=== PATIENT | female | born 1995 | race Caucasian/White ===

== ENCOUNTER 2017-07-04 19:13 | Emergency (ER) | payer OTHER, SELFPAY ==
[2017-07-04 19:14] VITALS: BP 136/83; PULSE 82; RESP 16; TEMP 36.8; O2SAT 100; BMI 32.7
--- NOTE | 2017-07-04 21:51 | ED.DCSUM_ITS ---
- ER Visit Summary Date of Service: 07/04/17 Chief Complaint: I think I have a concussion History of Present Illness: The patient is a 21 F who was playing volleyball yesterday. She was struck by a ball that was spiked. She states she was dazed. There is no loss conscious. She presents today because of headache, photophobia, sonophobia, nausea and intermittently feel as if she is in a fog. She states she cannot read small words or look at them on her screen because her headache worsens and she becomes more nauseous. She did complain of neck pain at the time of the event. She denies any paresthesia, anesthesia or motor weakness. She denies trouble with balance or walking. She is on no anticoagulant. She has no stomach a past medical history. She is visiting from out of town. Physical Examination: Vital signs are remarkable for an elevated blood pressure 136/83. She is wearing sunglasses. Pupils equal round reactive paradoxic muscle intact. She does have mild photophobia. There is normal cup-to-disc ratio. No papilledema. TMs are normal. Nares patent with no septal deviation hematoma. Uvula midline. Trachea midline. No cervical spine tenderness to palpation. Full active range of motion. Heart is regular without murmur, gallop or rub. S1 and S2 are normal. Lungs are clear to auscultation with good movement of air bilaterally. Abdomen is soft nontender. GCS is 15. Patient is alert and oriented ?3. Motor is 5/5. Sensation is intact. DTRs are symmetric without clonus or Babinski. Cranial nerves II through XII are intact. Finger to nose to finger was performed adequately. Test Results: None were indicated Emergency Department Course and Treatment: Patient was informed she has a concussion. She was informed to avoid things that make her symptoms worse. Treatment Plan: Appropriate home-going instructions for concussion Disposition: Charge to home with family Impression: Concussion without loss of conscious initial encounter This note was generated with [employer] dictation software. It may contain incorrect words, spelling, and punctuation that were not noted in review of the chart prior to signing ED Disposition - Plan for ED Patient: Disposition: Home or Assisted Living Chief Complaint: Head Injury Instructions: ED Concussion Referrals: NOT,DEFINED [Primary Care Provider] - Additional Instructions: Since you are not from the area recommend contacting a physician in her area that is on your insurance plan.
[2017-07-04 22:19] VITALS: BP 128/78; PULSE 69; RESP 16; O2SAT 100
== END 2017-07-04 22:20 | disposition home or self-care (01) ==
PROVIDERS: Emergency Provider Emergency Medicine
DX: S06.0X0A Concussion without loss of consciousness, initial encounter (principal); W21.06XA Struck by volleyball, initial encounter; Y93.68 Activity, volleyball (beach) (court); Y92.9 Unspecified place or not applicable
CPT/HCPCS: 99282

== ENCOUNTER → 2020-04-21 16:05 | Outpatient (CLI) | payer OTHER, SELFPAY | PROVIDERS: Referring Provider Obstetrics & Gynecology; Visit Provider Obstetrics & Gynecology | DX: N91.2 Amenorrhea, unspecified (principal) | CPT/HCPCS: 36415; 84702 ==

== ENCOUNTER → 2020-04-25 08:43 | Outpatient (CLI) | payer OTHER, SELFPAY ==
--- NOTE | 2020-04-25 08:44 | US_ITS ---
STUDY: FIRST TRIMESTER OBSTETRICAL ULTRASOUND REASON FOR EXAM: Female, 24 years old VIABILITY, UNKNOWN EXACT LMP-ESTIMATED 02/23/2020. HCG DRAWN 04/21/2020- [id number] LMP: 02/23/2020 TECHNIQUE: Transabdominal TECHNICAL QUALITY: Adequate. PRIOR ULTRASOUND: None. FINDINGS: There is visualization of a single gestational sac in a normal intrauterine position. The mean sac diameter (MSD) measures 2.33 cm, indicating an estimated gestational age (EGA) of 7 weeks, 2 days. The gestational sac shape is within normal limits. There is a visualized yolk sac. The yolk sac measures 3.1 mm. The placenta is non-visualized. There is visualization of a live embryo. The crown-rump length (CRL) measures 1.02 cm, indicating an estimated gestational age (EGA) of 7 weeks, 1 days. There is demonstrated cardiac activity with a heart rate of 152 bpm. The estimated gestation age (EGA) by LMP is 8 weeks, 6 days. The estimated date of delivery (SUSAN) by LMP is 11/29/2020. The estimated gestation age (EGA) by US is 7 weeks, 1 days. The estimated date of delivery (SUSAN) by US is 12/11/2020. The uterus measures 10.3 cm x 6.2 cm x 4.9 cm. There is no demonstrated uterine fibroid. The cervix is closed. The right ovary measures 2 cm x 2 cm x 2.6 cm. There is no right ovarian cyst. There is no visualized right adnexal mass or complex lesion. The right ovary is not visualized. There is no fluid in the cul de sac. US/Init OB < 14Wks US IMPRESSION: Live uterine gestation with mean gestational age of 7 weeks and 1 day. Electronically Signed: Lazaro Schofield, at 9:46 EST , Service support ,
== END ==
PROVIDERS: Referring Provider Obstetrics & Gynecology; Visit Provider Obstetrics & Gynecology
DX: Z36.89 Encounter for other specified antenatal screening (principal)
CPT/HCPCS: 76801

== ENCOUNTER → 2020-04-28 | Outpatient (CLI) | payer OTHER, SELFPAY ==
[2020-04-28 13:06] VITALS: BMI 41.3
[2020-04-28 18:26] LABS: Amphetamine Urine VISTA NEGATIVE (<1000 ng/mL); Barbiturate Urine VISTA NEGATIVE (< 200 ng/mL); Benzodiazepine Urine VISTA NEGATIVE (< 200 ng/mL); Cocaine Urine VISTA NEGATIVE (< 300 ng/mL); Ecstacy Urine VISTA NEGATIVE (< 500 ng/mL); Methadone Urine VISTA NEGATIVE (< 300 ng/mL); PCP Urine VISTA NEGATIVE (< 25 ng/mL); THC Urine VISTA NEGATIVE (< 50 ng/mL); Vista UDS pH Range 6
[2020-05-04 07:22] LABS: HPV APTIMA, High Risk Negative (Negative)
[2020-05-04 07:27] LABS: HPV Reflexed? YES, CHARGE PATIENT
== END | disposition home or self-care (01) ==
PROVIDERS: Referring Provider Obstetrics & Gynecology; Visit Provider Obstetrics & Gynecology
DX: Z34.90 Encounter for supervision of normal pregnancy, unspecified, unspecified trimester (principal); Z12.4 Encounter for screening for malignant neoplasm of cervix
CPT/HCPCS: 80307; 87086; 87624; 88175; G0145

== ENCOUNTER → 2020-05-26 14:18 | Outpatient (CLI) | payer OTHER, SELFPAY ==
[2020-05-26 13:29] VITALS: BMI 42.2
[2020-05-26 15:38] LABS: Absolute Lymphocyte Count 2.52 X10^3/uL (0.83-4.51); Absolute Neutrophil Count 8.2 X10^3/uL (2.0-7.7); Basophil# 0.03 X10^3/uL; Basophil% 0.3 % (0-1); Eosinophil# 0.09 X10^3/uL; Eosinophils% 0.8 % (0-5); Hematocrit 36.3 % (37-47); Hemoglobin 12.4 g/dL (12.0-15.0); Lymphocyte # 2.52 X10^3/ul (4.0); Lymphocyte % 22.3 % (19-41); Mean Corp Hgb Conc 34.2 g/dL (32-36); Mean Corpuscular Hgb 31.5 pg (27.0-32.0); Mean Corpuscular Volume 92.1 fL (81-99); Mean Platelet Vol. 9.5 fl (6.2-12.0); Monocyte# 0.49 X10^3/uL; Monocyte% 4.3 % (0-10); NRBC Flagged by Analyzer 0 % (0-5); Neutrophil # 8.15 X10^3/uL (2.7-7.7); Neutrophil % 71.9 % (47-70); Platelet Count 294 K/mm3 (150-450); RBC Distribution Width CV 11.7 % (11.6-14.6); RBC Distribution Width SD 39.4 fl (35.1-43.9); Red Blood Count 3.94 M/mm3 (4.2-5.4); White Blood Count 11.3 K/mm3 (4.4-11.0)
[2020-05-26 15:38] LABS: NATERA MAILED SPECIMEN
[2020-05-26 16:01] LABS: Glucose Challenge Gest 1H 50g 197 mg/dL (70-140)
[2020-05-26 16:50] LABS: HIV - WCH Non-Reactive (Nonreactive); Hepatitis B Surface Antigen Non-Reactive (Nonreactive); Hepatitis C Antibody Non-Reactive (Nonreactive); Rubella IgG Reactive (Nonreactive)
[2020-05-29 01:42] LABS: Rapid Plasmin Reagin (RPR) NONREACTIVE (NONREACTIVE)
== END ==
PROVIDERS: Referring Provider Obstetrics & Gynecology; Visit Provider Obstetrics & Gynecology
DX: Z34.81 Encounter for supervision of other normal pregnancy, first trimester (principal); Z31.430 Encounter of female for testing for genetic disease carrier status for procreative management
CPT/HCPCS: 36415; 82950; 85025; 86592; 86703; 86762; 86803; 86850; 86900; 86901; 87340

== ENCOUNTER 2020-06-10 09:30 | Outpatient (RCR) | payer OTHER, SELFPAY ==
[2020-05-28 10:11] VITALS: BMI 42.2
== END 2020-06-15 23:59 ==
LOC: NS 09:30
PROVIDERS: Visit Provider Obstetrics & Gynecology
DX: Z71.3 Dietary counseling and surveillance (principal); O24.419 Gestational diabetes mellitus in pregnancy, unspecified control; Z3A.00 Weeks of gestation of pregnancy not specified
CPT/HCPCS: 97802; G0108

== ENCOUNTER 2020-06-30 10:00 | Outpatient (RCR) | payer OTHER, SELFPAY ==
[2020-06-06 14:59] VITALS: BMI 40.8
[2020-06-27 14:50] VITALS: BMI 41.4
== END 2020-07-16 23:59 ==
LOC: DC 10:00
PROVIDERS: Visit Provider Obstetrics & Gynecology
DX: Z71.3 Dietary counseling and surveillance (principal); O24.419 Gestational diabetes mellitus in pregnancy, unspecified control; Z3A.00 Weeks of gestation of pregnancy not specified

== ENCOUNTER → 2020-07-21 | Outpatient (CLI) | payer OTHER, SELFPAY ==
[2020-07-21 10:47] VITALS: BMI 41.0
[2020-07-21 16:16] LABS: Chlamydia Trachomatis by PCR Negative (Negative); Neisserai gonorrhoeae by PCR Negative (Negative); Probe Check PASS; Sample Adequacy Control PASS; Specimen Processing Control PASS
== END | disposition home or self-care (01) ==
LOC: LABSPEC 12:37
PROVIDERS: Visit Provider Nurse Practitioner Women's Health
DX: Z34.90 Encounter for supervision of normal pregnancy, unspecified, unspecified trimester (principal)
CPT/HCPCS: 87491; 87591

== ENCOUNTER → 2020-09-24 09:58 | Outpatient (CLI) | payer OTHER, SELFPAY ==
[2020-09-17 09:01] VITALS: BMI 41.0
[2020-09-24 10:31] LABS: Absolute Neutrophil Count 8.1 X10^3/uL (2.0-7.7); Basophil# 0.04 X10^3/uL; Basophil% 0.3 % (0-1); Eosinophil# 0.29 X10^3/uL; Eosinophils% 2.5 % (0-5); Hematocrit 38.5 % (37-47); Hemoglobin 12.7 g/dL (12.0-15.0); Lymphocyte % 21.6 % (19-41); Mean Corpuscular Hgb 31.1 pg (27.0-32.0); Mean Corpuscular Volume 94.1 fL (81-99); Mean Platelet Vol. 9.3 fl (6.2-12.0); Monocyte# 0.54 X10^3/uL; Monocyte% 4.7 % (0-10); NRBC Flagged by Analyzer 0 % (0-5); Neutrophil # 8.11 X10^3/uL (2.7-7.7); Neutrophil % 70.3 % (47-70); Platelet Count 240 K/mm3 (150-450); RBC Distribution Width CV 12.2 % (11.6-14.6); RBC Distribution Width SD 41.9 fl (35.1-43.9); Red Blood Count 4.09 M/mm3 (4.2-5.4); White Blood Count 11.6 K/mm3 (4.4-11.0)
== END ==
PROVIDERS: Referring Provider Obstetrics & Gynecology; Visit Provider Obstetrics & Gynecology
DX: Z34.02 Encounter for supervision of normal first pregnancy, second trimester (principal)
CPT/HCPCS: 36415; 85025

== ENCOUNTER → 2020-10-17 09:55 | Outpatient (CLI) | payer OTHER, SELFPAY ==
[2020-08-22 13:10] VITALS: BMI 41.0
[2020-10-17 09:13] VITALS: BMI 41.0
--- NOTE | 2020-10-17 09:58 | US_ITS ---
STUDY: SECOND AND THIRD TRIMESTER OBSTETRICAL ULTRASOUND - LIMITED REASON FOR EXAM: Female, 24 years old GDMA LMP: 03/06/2020. PRIOR ULTRASOUND: Comparison is made with prior examination dated 04/25/2020. TECHNIQUE: Transabdominal TECHNICAL QUALITY: Adequate. FINDINGS: There is a single intrauterine fetus. The fetus is in a cephalic presentation. There is demonstrated cardiac activity with a heart rate of 136 bpm. There is a normal amniotic fluid volume. The largest amniotic fluid pocket measures 4.7 cm. The amniotic fluid index (JANESSA) is 12.9 cm. The placenta is posterior in location and is not low lying. There are Grade 1 placental changes. The cervix measures 4.9 cm in length. BIOMETRY: BPD: 8.1 cm: 32 weeks, 5 days HC: 29.8 cm: 33 weeks, 0 days AC: 28.7 cm: 32 weeks, 5 days FL: 6.4 cm: 33 weeks, 1 days Age by LMP: 32 weeks, 1 days. SUSAN by LMP: 12/11/2020. age by prior US: 32 weeks, 1 days. SUSAN by prior US: 12/11/2020. age by current US: 33 weeks, 0 days. SUSAN by current US: 12/05/2020. Estimated weight: 2061 grams, +/- 301 grams, 62 percentile. US/OB Limited With Biometrics IMPRESSION: Single live intrauterine gestation with a mean gestational age of 32 weeks and 1 day. The measurements obtained today fall within the normal expected range. Electronically Signed: Lazaro Schofield MD at 12:24 EDT , Service support ,
== END ==
PROVIDERS: Referring Provider Nurse Practitioner Women's Health; Visit Provider Nurse Practitioner Women's Health
DX: O24.415 Gestational diabetes mellitus in pregnancy, controlled by oral hypoglycemic drugs (principal)
CPT/HCPCS: 76816

== ENCOUNTER → 2020-10-31 09:31 | Outpatient (CLI) | payer OTHER, SELFPAY ==
[2020-10-31 08:32] VITALS: BMI 41.0
--- NOTE | 2020-10-31 09:33 | US_ITS ---
STUDY: OBSTETRICAL ULTRASOUND - BIOPHYSICAL PROFILE REASON FOR EXAM: Female, 25 years old nonreactive NST LMP: 03/06/2020. PRIOR ULTRASOUND: Comparison is made with prior examination 10/17/2020. TECHNIQUE: Transabdominal TECHNICAL QUALITY: Adequate. FINDINGS: There is a single intrauterine fetus. The fetus is in a cephalic presentation. There is demonstrated cardiac activity with a heart rate of 135 bpm. There is a normal amniotic fluid volume. The largest amniotic fluid pocket measures 3.4 cm. The amniotic fluid index (JANESSA) is 9.86 cm. The placenta is fundal in location. There are Grade 1 placental changes. Age by LMP: 34 weeks, 1 days. SUSAN by LMP: 12/11/2020. age by prior US: 35 weeks, 0 days. SUSAN by prior US: 12/05/2020. Gender: Female BIOPHYSICAL PROFILE: Breathing Movements (FBM): 2 Gross Body Movements (GBM): 2 Tone (FT): 2 Amniotic Fluid Volume (AFV): 2 TOTAL SCORE: 8 / 8 US/Biophysical Prof W/O Non Stres IMPRESSION: Normal biophysical profile of 8/8. Electronically Signed: Lazaro Schofield MD at 10:38 EDT , Service support ,
== END ==
PROVIDERS: Referring Provider Obstetrics & Gynecology; Visit Provider Obstetrics & Gynecology
DX: O28.8 Other abnormal findings on antenatal screening of mother (principal); Z3A.34 34 weeks gestation of pregnancy
CPT/HCPCS: 76819

== ENCOUNTER → 2020-11-14 09:09 | Outpatient (CLI) | payer OTHER, SELFPAY ==
[2020-10-17 09:13] VITALS: BMI 41.0
[2020-11-14 08:16] VITALS: BMI 41.0
--- NOTE | 2020-11-14 09:11 | US_ITS ---
STUDY: SECOND AND THIRD TRIMESTER OBSTETRICAL ULTRASOUND - LIMITED REASON FOR EXAM: Female, 25 years old routine survey LMP: 03/06/2020 PRIOR ULTRASOUND: 10/31/2020 TECHNIQUE: Transabdominal TECHNICAL QUALITY: Adequate. FINDINGS: There is a single intrauterine fetus. The fetus is in a cephalic presentation. There is demonstrated cardiac activity with a heart rate of 148 bpm. There is a normal amniotic fluid volume. The largest amniotic fluid pocket measures 3.1 cm. The amniotic fluid index (JANESSA) is 10.5 cm. The placenta is posterior in location and is not low lying. There are Grade 1 placental changes. The cervix measures 3.5 cm in length. BIOMETRY: BPD: 8.99 cm: 36 weeks, 3 days HC: 32.79 cm: 37 weeks, 1 days AC: 33.02 cm: 36 weeks, 6 days FL: 7.01 cm: 35 weeks, 6 days Age by LMP: 36 weeks, 1 days. SUSAN by LMP: 12/11/2020. age by prior US: 37 weeks, 0 days. SUSAN by prior US: 12/05/2020. age by current US: 36 weeks, 3 days. SUSAN by current US: 12/09/2020. Estimated weight: 3014 grams, +/- 452 grams, 67.37 percentile. US/OB Limited With Biometrics IMPRESSION: Single live intrauterine at 36 weeks 3 days by current ultrasound with SUSAN of 12/09/2020. Heart rate at 148 bpm. No suspicious sonographic findings, there has been normal growth since the previous study Electronically Signed: Philippe Pizano MD at 10:44 EDT , Service support ,
== END ==
PROVIDERS: Referring Provider Obstetrics & Gynecology; Visit Provider Obstetrics & Gynecology
DX: O24.415 Gestational diabetes mellitus in pregnancy, controlled by oral hypoglycemic drugs (principal); Z3A.36 36 weeks gestation of pregnancy
CPT/HCPCS: 76816; 87081

== ENCOUNTER → 2020-11-28 12:46 | Outpatient (CLI) | payer OTHER, SELFPAY ==
[2020-11-28 08:28] VITALS: BMI 41.0
[2020-11-28 13:41] LABS: Protein, Urine (Random) 51.5 mg/dL (<11.9); Protein:Creat Ratio 552 mg/g CRE (0-200)
== END ==
PROVIDERS: Referring Provider Obstetrics & Gynecology; Visit Provider Obstetrics & Gynecology
DX: R80.9 Proteinuria, unspecified (principal)
CPT/HCPCS: 82570; 84156

== ENCOUNTER 2020-12-05 19:55 | Inpatient (IN) | payer OTHER, SELFPAY ==
[2020-12-05 20:01] VITALS: BMI 41.1
[2020-12-05 20:30] VITALS: BP 124/88; PULSE 100; TEMP 37.1
[2020-12-05 20:49] LABS: Absolute Lymphocyte Count 3.42 X10^3/uL (0.83-4.51); Basophil# 0.06 X10^3/uL; Basophil% 0.4 % (0-1); Eosinophil# 0.12 X10^3/uL; Eosinophils% 0.8 % (0-5); Hematocrit 42.8 % (37-47); Hemoglobin 14.2 g/dL (12.0-15.0); Lymphocyte # 3.42 X10^3/ul (0.83-4.51); Lymphocyte % 23.4 % (19-41); Mean Corp Hgb Conc 33.2 g/dL (32-36); Mean Corpuscular Hgb 31.3 pg (27.0-32.0); Mean Corpuscular Volume 94.3 fL (81-99); Mean Platelet Vol. 9.8 fl (6.2-12.0); Monocyte# 0.89 X10^3/uL; Monocyte% 6.1 % (0-10); NRBC Flagged by Analyzer 0 % (0-5); Neutrophil # 10.03 X10^3/uL (2.7-7.7); Neutrophil % 68.8 % (47-70); Platelet Count 271 K/mm3 (150-450); RBC Distribution Width CV 12.3 % (11.6-14.6); RBC Distribution Width SD 42.5 fl (35.1-43.9); Red Blood Count 4.54 M/mm3 (4.2-5.4); White Blood Count 14.6 K/mm3 (4.4-11.0)
[2020-12-05 21:01] VITALS: PULSE 81; O2SAT 97
[2020-12-05 21:20] LABS: Bedside Glucose 125 mg/dL (70-110)
--- NOTE | 2020-12-05 21:36 | HP.PCM.OB_ITS ---
HPI - General General Date of Admission: 12/05/20 HPI Narrative GUILLERMO VILLASEÑOR, is a 25 F at 39 weeks who presents for induction of labor for GDMA2 Maternal Data Information SUSAN Calculator Estimated Delivery Date Method Current WG Current Estimate 12/11/20 Ultrasound #1 39w 1d PFSH PFS Medical History (Updated 12/05/20 @ 21:[address] Stefanie Bond MD) Asthma Gestational diabetes Home Medications multivitamin no.47-iron fum 27 mg-folate no.1 1 mg-dha 300 mg capsule 1 cap PO DAILY 04/25/20 [History Last Taken 12/05/20 08:00] blood-glucose meter #1 ea 06/06/20 [History Last Taken Unknown] lancets 30 gauge #100 ea 06/06/20 [History Last Taken Unknown] blood sugar diagnostic #200 ea 06/19/20 [Rx Last Taken Unknown] pen needle, diabetic 32 gauge x 5/32 #100 ea 11/12/20 [Rx Last Taken Unknown] insulin NPH isoph U-100 human [Novolin N Flexpen] 28 unit SUBCUT QPM 12/05/20 [History Last Taken 12/04/20 22:00] metformin 1,000 mg PO BID 12/05/20 [History Last Taken 12/05/20 18:00] Allergy/AdvReac Type Severity Reaction Status Date / Time shellfish derived AdvReac Severe Swelling Verified 12/05/20 20:02 Family History Mother Hypertension H/O HELLP syndrome Grandmother Kidney disease poly cystic kidney disease Aunt Liver disease poly cystic liver disease Grandfather Diabetes Surgical History (Updated 12/05/20 @ 20:43 by Maia Harry) H/O knee surgery (~2007) H/O wisdom tooth extraction Hx of tonsillectomy Social History adopted: No household members: spouse housing: house current occupational status: employed current occupation: [employer] Smoking Status: Never smoker second hand exposure: No alcohol intake: current details: not while substance use type: does not use seatbelt use: always do you feel safe at home: Yes additional social history: - Lance Villaseñor ([employer] History 1 Elective abortions Hx Para 0 Spontaneous abortions Hx # Term Pregnancies Ectopic pregnancies Hx # Pregnancies Multiple births # of living children Visit Details Expected Delivery Route/Plan IOL 39 Labor Preferences- CB/BF classes: scheduled labor support person: Lance labor intervention preferences: [] pain management options preferred: epidural cut cord/dad catch: yes : yes PP control planned: discussed discussed possible routes of delivery and associated risks: [] special requests: [] Plans flu vaccine: decline tdap vaccine: decline rhogam: na LARC form signed: yes movement and labor precautions reviewed. Problem list reviewed and updated with the most current plan of care details and appropriate orders placed. Relevant counseling for the gestational age provided. Continue routine care and follow up unless otherwise noted in visit notes/problem list details OB Flowsheet Initial Weight: 226 lb Date -?-?-?-?-?-?-?-?-?-?-?-?- EGA Weight BP Urine Prot -?-?-?-?-?-?-?-?-?-?-?-?- Glucose FHR FuHt Pres Dilation -?-?-?-?--?-?-?-?-?-?-?-?- Effaced St Visit Note 04/28/20 -?-?-?-?-?-?-?-?-?-?-?-?- 7w 4d 226 lb (+0 oz) 130/88 -?-?-?-?-?-?-?-?-?-?-?-?- 160 -?-?-?-?-?-?-?-?-?-?-?-?- SM- CRL cons wit h LMP SM- CRL cons with previous u s 05/26/20 -?-?-?-?-?-?-?-?-?-?-?-?- 11w 4d 231 lb (+5 lb) 120/82 Negative -?-?-?-?-?-?-?-?-?-?-?-?- Negative 175 -?-?-?-?-?-?-?-?-?-?-?-?- SM- no vb ti bender doing well. 06/27/20 -?-?-?-?-?-?-?-?-?-?-?-?- 16w 1d 226 lb 8 oz (+8 oz) Negative -?-?-?-?-?-?-?-?-?-?-?-?- Negative 150 -?-?-?-?-?-?-?-?-?-?-?-?- GP - no cramping or bleeding. Anatomy scan scheduled 07/21. 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 Anatomy scan scheduled 07/21. 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 Follows with Dr. De Dios for GDM. 07/21/20 -?-?-?-?-?-?-?-?-?-?-?-?- 19w 4d 224 lb 4 oz (-1 lb 12 oz) 114/68 Trace -?-?-?-?-?-?-?-?-?-?-?-?- Negative 148 -?-?-?-?-?-?-?-?-?-?--?-?- MH- No Vb, LOF. BS good, seeing Dr De Dios. Completed MFM anatomy US earlier today. Few flutters. 08/22/20 -?-?-?-?-?-?-?-?-?-?-?-?- 24w 1d 226 lb (+0 oz) 122/78 Negative -?-?-?-?-?-?-?-?-?-?-?-?- Negative 145 24 -?-?-?-?-?-?-?-?-?-?-?-?- Sm- no vb lof go od fm discussed medical management with metformin and insulin so will plan additional testing in third trimester 09/17/20 -?-?-?-?-?-?-?-?-?-?-?-?- 27w 6d 222 lb 2 oz (-3 lb 14 oz) 120/74 Trace -?-?-?-?-?-?-?-?-?-?-?-?- Negative 141 28 -?-?-?-?-?-?-?-?-?-?-?-?- -No VB, LOF. G ood FM. Will get CBC next week. Growth US ordered. >50% BS WNL/Dr De Dios 10/06/20 -?-?-?-?-?-?-?-?-?-?-?-?- 30w 4d 221 lb (-5 lb) 110/82 -?-?-?-?-?-?-?-?-?-?-?-?- 168 30 -?-?-?-?-?-?-?-?-?-?-?-?- -No Vb, LOF. G ood FM BS WNL 10/17/20 -?-?-?-?-?-?-?-?-?-?-?-?- 32w 1d 224 lb (-2 lb) 118/70 Negative -?-?-?-?-?-?-?-?-?-?-?-?- Negative 150 -?-?-?-?-?-?-?-?-?-?-?-?- SM- no vb lof go od fm no regular ctx. increased insulin per dr de dios 10/22/20 -?-?-?-?-?-?-?-?-?-?-?-?- 32w 6d 226 lb (+0 oz) 122/82 Negative -?-?-?-?-?-?-?-?-?-?-?-?- Negative 140 -?-?-?-?-?-?-?-?-?--?-?-?- -NST only reac tive 10/24/20 -?-?-?-?-?-?-?-?-?-?-?-?- 33w 1d 226 lb 2 oz (+2 oz) 120/86 Negative -?-?-?-?-?-?-?-?-?-?-?--?- Negative 125 -?-?-?-?-?-?-?-?-?-?-?-?- GP - no ctx, LOF , VB, dFM. BGTs controlled on insulin. 10/29/20 -?-?-?-?-?-?-?-?-?-?-?-?- 33w 6d 227 lb (+16 oz) 112/84 Negative -?-?-?-?-?-?-?-?-?-?-?-?- Negative 130 -?-?-?-?-?-?-?-?-?-?-?-?- GP - NST only, r eactive 10/31/20 -?-?-?-?-?-?-?-?-?-?-?-?- 34w 1d 225 lb (-16 oz) -?-?-?-?-?-?-?-?-?-?-?-?- 140 -?-?-?-?-?-?-?-?-?-?-?-?- GP - no LOF, VB, DFM, ctx. BGTs controlled on insulin. NST nonreactive - sent for BPP 11/04/20 -?-?-?-?-?-?-?-?-?-?-?-?- 34w 5d 226 lb (+0 oz) 122/74 Negative -?-?-?-?-?-?-?-?-?-?-?-?- Negative 140 -?-?-?-?-?-?-?-?-?-?-?-?- MH-NST only reac tive 11/07/20 -?-?-?-?-?-?-?--?-?-?-?-?- 35w 1d 228 lb (+2 lb) 102/80 Negative -?-?-?-?-?-?-?-?-?-?-?-?- Negative 130 -?-?-?-?-?-?-?-?-?-?-?-?- GP - no LOF, VB, DFM, ctx. NST reactive. BGTs nl. 11/12/20 -?-?-?-?-?-?-?-?-?-?-?-?- 35w 6d 228 lb 8 oz (+2 lb 8 oz) 120/80 Negative -?-?-?-?-?-?-?-?-?-?-?-?- Negative 150 -?-?-?-?-?-?-?-?-?-?-?-?- MH-NST only reac tive 11/14/20 -?-?-?-?-?-?-?-?-?-?-?-?- 36w 1d 227 lb (+16 oz) 100/80 Negative -?-?-?-?-?-?-?-?-?-?-?-?- Negative 140 -?-?-?-?-?-?-?-?-?-?-?-?- SM- no vb lof go od fm no regular ctx gbs today 11/19/20 -?-?-?-?-?-?-?-?-?-?-?-?- 36w 6d 231 lb (+5 lb) 116/74 -?-?-?-?-?-?-?-?-?-?-?-?- 140 -?-?-?-?-?--?-?-?-?-?-?-?- MH-NST only reac tive 11/21/20 -?-?-?-?-?-?-?-?-?-?-?-?- 37w 1d 230 lb (+4 lb) 118/84 Negative -?-?-?-?-?-?-?-?-?-?-?-?- Negative 130 -?-?-?-?-?-?-?-?-?-?-?-?- SM- no vb lof go od fm nor egular ctx BS controlled 11/26/20 -?-?-?-?-?-?-?-?-?-?-?-?- 37w 6d 229 lb (+3 lb) 118/88 Negative -?-?-?-?-?-?-?-?-?-?-?-?- Negative 140 -?-?-?-?-?-?-?-?-?-?-?-?- MH-reactive NST. Has had some low blood sugars-will call Dr De Dios 11/28/20 -?-?-?-?-?-?-?-?-?-?-?-?- 38w 1d 230 lb (+4 lb) 120/88 -?-?-?-?-?-?-?-?-?-?-?-?- 130 38 -?-?-?-?-?-?-?-?-?-?-?-?- GP - no LOF, VB, DFM, ctx. Scheduled IOL for 12/0512/04/20 -?-?-?-?-?-?-?-?-?-?-?-?- 39w 0d 232 lb (+6 lb) 138/86 Negative -?-?-?-?-?-?-?-?-?-?-?-?- Negative -?-?-?-?-?-?-?-?-?-?-?-?- 12/05/20 -?-?-?-?-?-?-?-?-?-?-?-?- 39w 1d 232 lb (+6 lb) 124/88 -?-?-?-?-?-?-?-?-?-?-?-?- -?-?-?-?-?-?-?-?-?-?-?-?- Admitted for IOL NST FHR Rate Baby A Baseline: 130 Variability:: Moderate Accelerations:: 15 x 15 Decelerations:: None NST Reactive:: Yes FHR Category:: Category I Uterine Activity:: irritability ROS Eyes Eyes: Reports systems reviewed and no addt'l complaints, except as documented ENT HEENT: Reports systems reviewed and no addt'l complaints, except as documented Cardiovascular Cardiovascular: Reports systems reviewed and no addt'l complaints, except as documented Respiratory/Chest Respiratory/Chest: Reports systems reviewed and no addt'l complaints, except as documented Gastrointestinal Gastrointestinal: Reports systems reviewed and no addt'l complaints, except as documented Genitourinary Genitourinary: Reports systems reviewed and no addt'l complaints, except as documented Musculoskeletal Musculoskeletal: Reports systems reviewed and no addt'l complaints, except as documented Integumentary Integumentary: Reports systems reviewed and no addt'l complaints, except as documented Neurologic Neurologic: Reports systems reviewed and no addt'l complaints, except as documented Psychiatric Psychiatric: Reports systems reviewed and no addt'l complaints, except as documented Endocrine Endocrinology: Reports systems reviewed and no addt'l complaints, except as documented Hematologic/Lymphatic Hematologic/Lymphatic: Reports systems reviewed and no addt'l complaints, except as documented Allergic/Immunologic Allergic/Immunologic: Reports systems reviewed and no addt'l complaints, except as documented Vital Signs Vital Signs Vital Signs: 12/05/20 20:30 12/05/20 21:01 Temperature 98.7 F Temperature Source Temporal Pulse Rate 100 81 Blood Pressure 124/88 H BP Systolic 124 BP Diastolic 88 Pulse Ox 97 Weight Weight: 232 lb Body Mass Index (BMI) 41.1 Physical Exam Const alert, oriented x3, no apparent distress, average body habitus, healthy appearing and well nourished HEENT normocephalic and moist oral mucous membranes Head and Scalp: atraumatic Eyes PERRL and EOMs intact bilaterally Neck full ROM Resp normal respiratory effort, no retractions and no use of accessory muscles Cardio regular rate and regular rhythm GI soft to palpation, non-tender and non-distended Manual OB Exam: dilated 0 Extremity normal to inspection and full ROM Skin no rashes or lesions noted Neuro no focal motor deficits and no sensory deficits noted Psych mental status grossly normal, affect normal, speech normal and activity/motor behavior normal Labs Labs Labs: Blood Type O POSITIVE Antibody Screen NEGATIVE Hct 42.8 % (37-47) Hgb 14.2 g/dL (12.0-15.0) Obstetrics US Rubella IgG Antibody Reactive (Nonreactive) Hep Bs Antigen Non-Reactive (Nonreactive) HIV 1&2 Antibody Non-Reactive (Nonreactive) C.trachomatis DNA (PCR) Negative (Negative) Glucose 1 Hr 50 gm 197 mg/dL (70-140) H Assessment & Plan (1) : QUALIFIERS: Weeks of gestation: 38 weeks Qualified Code(s): Z3A.38 - 38 weeks gestation of COMMENT: genetic- low risk and carrier-. declined afp screen. nl anatomy. nl growth 11/14/20, GBS NEGATIVE (2) Supervision of normal : QUALIFIERS: Normal : normal first Trimester: second trimester Qualified Code(s): Z34.02 - Encounter for supervision of normal first , second trimester COMMENT: PRR girl! Mary Ellen SUSAN: 12/11/20 Spouse: Lance (3) Obesity affecting : QUALIFIERS: Trimester: second trimester Qualified Code(s): O99.212 - Obesity complicating , second trimester COMMENT: 1 tm glucola, encourage healthy weight gain. (4) ASCUS of cervix with negative high risk HPV: COMMENT: repeat pap 2023 (5) Gestational diabetes: QUALIFIERS: Trimester: second trimester Gestational diabetes mellitus control: oral hypoglycemic-controlled Qualified Code(s): O24.415 - Gestational diabetes mellitus in , controlled by oral hypoglycemic drugs COMMENT: 2x weekly NSTs. s/p Endocrinology and Nutrition; on insulin. Normal growth and echo with MFM on 08/19/20. Growth with [facility] at 32 weeks.deliver at 39, growth US nl on 10/17, nl BPP PLAN: On NPH 28u qhs Plan 1/2 basal insulin while in labor Plan BGTs q4h latent/q1h active (6) Encounter for induction of labor: PLAN: Patient presents IOL, plan management for with cytotec. Pain management: plans epidural. GBS negative - culture positive group C strep NOT group B Management of any complications: none I have reviewed the PFSH and made any clinically relevant updates.
[2020-12-05] MEDS: miSOPROStol 25 MCG TABLET PO (21:39)
[2020-12-05] MEDS: Insulin NPH Human 100 UNITS/ML PEN 14 UNITS SC (22:06)
[2020-12-05 22:16] LABS: Bedside Glucose 93 mg/dL (70-110)
[2020-12-06] VITALS (34 sets, daily range): BP systolic 99–138; BP diastolic 56–87; PULSE 69–112; TEMP 35.9–37.2; O2SAT 94–100
[2020-12-06 01:51] LABS: Bedside Glucose 76 mg/dL (70-110)
[2020-12-06] MEDS: miSOPROStol 50 MCG TABLET PO (01:58)
[2020-12-06 07:25] LABS: Bedside Glucose 74 mg/dL (70-110)
[2020-12-06] MEDS: miSOPROStol 25 MCG TABLET 50 MCG PO (09:32)
--- NOTE | 2020-12-06 09:47 | NURSING ---
poc bg 1 hr post snack
[2020-12-06 10:16] LABS: Bedside Glucose 119 mg/dL (70-110)
[2020-12-06 13:56] LABS: Bedside Glucose 103 mg/dL (70-110)
[2020-12-06] MEDS: 0.9% Normal Saline Single 100 ML IV.SOLN. INTRA-UTER (16:13)
[2020-12-06 16:31] LABS: Bedside Glucose 80 mg/dL (70-110)
[2020-12-06] MEDS: Oxytocin 30 units/NS 500 ml 30 UNITS/500 ML IV.SOLN IV (16:51)
[2020-12-06] MEDS: 0.9% Saline Lock 10 ML Syringe IV ×2 (16:51→22:55)
[2020-12-06] MEDS: Lactated Ringers 1,000 ML 50 ML IV (16:51)
[2020-12-06] MEDS: Lactated Ringers 500 ML 999 ML IV (17:58)
[2020-12-06 18:05] LABS: Bedside Glucose 89 mg/dL (70-110)
[2020-12-06] MEDS: fentaNYL-bupivacaine (epidural) 100 ML BAG EPIDURAL ×2 (19:03→23:45)
[2020-12-06 21:01] LABS: Bedside Glucose 113 mg/dL (70-110)
--- NOTE | 2020-12-06 21:37 | PN_ITS ---
Progress Note Rodgers bulb out epidural in. Pat at 8 milliunits current tracing: FHT: 150 minimal to moderate variability reactive occasional variable deceler ations. Category 2 tracing. Overall reassuring. [place]: Every 2 to 3 minutes contractions very strong on examination reviewed tracing abnormalities since last note: Periods of minimal variability of isolated variables A/P: FSE and IUPC placed. Patient now 5 cm. Pitocin halved to 4 milliunits due to uterine hyperstimulation. Continue blood sugars every 1 hour. Insulin drip if indicated per protocol
[2020-12-06 21:46] LABS: Bedside Glucose 90 mg/dL (70-110)
[2020-12-06 22:55] LABS: Bedside Glucose 97 mg/dL (70-110)
[2020-12-06] MEDS: Ondansetron 4 MG/2 ML Vial IV (22:55)
[2020-12-06] MEDS: Lactated Ringers 1,000 ML 200 ML IV (23:01)
[2020-12-06 23:55] LABS: Bedside Glucose 97 mg/dL (70-110)
[2020-12-07] VITALS (98 sets, daily range): BP systolic 91–140; BP diastolic 52–75; PULSE 41–163; RESP 16–18; TEMP 35.7–38.4; O2SAT 77–100
--- NOTE | 2020-12-07 | PLAC_PTH ---
PATIENT: GUILLERMO VILLASEÑOR LOC: [facility] U#:[id number] AGE/SX: 25/F ROOM: [facility] RE12/05/[address]: Dr. Jannet Dupont MD : 1995 BED: 1 DIS: 12/09/2020 SPEC #: [id number] RECD: 12/07/20 15:10 STATUS: RICHI SAL #: [id number] SAHRA: 12/07/20 00:[address]: Jannet Dupont DEPT: SURGICAL PATHOLOGY RECD BY: Harman Heller ENTERED: 12/08/20 08:07 SP TYPE: PLACENTA OTHR DR: No Primary Care Phys Tissues: Placenta, NOS Procedures: Surgery Specimen Level V HEADER OPERATION: Primary section PRE-OP DIAGNOSIS: Induction TISSUE SUBMITTED: Placenta MICROSCOPIC DIAGNOSIS Placenta: Placental disc - third trimester placenta (443 gm). - Moderate acute vasculitis of subamniotic blood vessels. Membranes ? moderate acute chorioamnionitis. Umbilical cord - three blood vessels and moderate acute funisitis. MOISES:juancarlos 12/10/2020 MICROSCOPIC DESCRIPTION Slides are reviewed. GROSS DESCRIPTION SPECIMEN: PLACENTA / CLINICAL INFORMATION: A. Weight: 2.765 kg B. Gestational Age: 39 weeks C. Sex: Female PLACENTAL WEIGHT (POST FIXATION): 443 gm PLACENTAL DIMENSIONS: 17 x 13 x 4 cm PLACENTAL SHAPE: Usual ovoid PLACENTAL WEIGHT FOR GESTATIONAL AGE: Within 10-99th percentile MEMBRANES - Present A. Insertion: Marginal B. Site of rupture from edge: At edge of placental disc C. Color of membrane: Greenish consistent with meconium staining D. Abnormalities: None UMBILICAL CORD - Present A. Color: Santos-graham B. Insertion: Marginal C. Length: 56 cm D. Diameter: 1.2 cm E. Number of vessels: Three F. Abnormalities: None PLACENTAL DISC - Present A. Color of surface: Santos-graham B. surface abnormalities: None C. Maternal cotyledons: Intact with minimal tears D. Attached retro placental clot: No clot E. Cut surface: Dark red and spongy F. Lesions: None G. Separate clot: Absent SECTIONS SUBMITTED: 1. Membrane roll 2. Cord, maternal end 3. Cord, end 4. Placental disc, and maternal surfaces 5. Placental disc, and maternal surfaces 6. Placental disc, and maternal surfaces SJ:juancarlos 12/09/20 TC:2 CPT: 66970
[2020-12-07 01:11] LABS: Bedside Glucose 97 mg/dL (70-110)
[2020-12-07 01:56] LABS: Bedside Glucose 88 mg/dL (70-110)
[2020-12-07] MEDS: Lactated Ringers 500 ML 999 ML IV ×2 (02:23→03:24)
[2020-12-07] MEDS: Terbutaline 1 MG/ML Vial 0.25 MG SC (02:28)
--- NOTE | 2020-12-07 02:35 | PN_ITS ---
Progress Note pitocin off and terb given x 1 current tracing: FHT: 150-160 minimal variability recurrent late decels positive scalp stimulation and then resolution of decels with terbutaline [place]: q 2-3 then none Contractions reviewed tracing abnormalities since last note: cat III now cat II A/P: close monitoring, recovery with moderate variability, meconium fluid. cervical change 4 80 -1 stretchy
[2020-12-07 02:56] LABS: Bedside Glucose 110 mg/dL (70-110)
[2020-12-07] MEDS: Acetaminophen 500 MG Tablet PO ×2 (03:25→09:27)
[2020-12-07] MEDS: fentaNYL-bupivacaine (epidural) 100 ML BAG EPIDURAL ×2 (04:12→08:59)
[2020-12-07 04:21] LABS: Bedside Glucose 135 mg/dL (70-110)
[2020-12-07 04:52] LABS: Bedside Glucose 155 mg/dL (70-110)
[2020-12-07] MEDS: Lactated Ringers 1,000 ML 200 ML IV (05:04)
[2020-12-07 06:56] LABS: Bedside Glucose 122 mg/dL (70-110)
[2020-12-07 07:26] LABS: Bedside Glucose 101 mg/dL (70-110)
[2020-12-07 08:31] LABS: Bedside Glucose 90 mg/dL (70-110)
[2020-12-07 10:20] LABS: Bedside Glucose 101 mg/dL (70-110)
[2020-12-07 10:20] LABS: Bedside Glucose 81 mg/dL (70-110)
--- NOTE | 2020-12-07 11:49 | PCM.PN.BLA ---
Progress Note Patient experienced arrest of dilation 6 cm. She has been ruptured for 23 hours and on Pitocin for 23 hours and has had adequate contractions for the last 4 to 5 hours with no cervical change. Category 2 tracing tachycardia minimal variability no decelerations nonreactive but positive scalp stimulation. Recommend proceeding with primary low transverse for suspected CPD.
--- NOTE | 2020-12-07 11:55 | OP.PCM_ITS ---
Assessment & Plan (1) Gestational diabetes: QUALIFIERS: Gestational diabetes mellitus control: oral hypoglycemic-controlled Trimester: second trimester Qualified Code(s): O24.415 - Gestational diabetes mellitus in , controlled by oral hypoglycemic dr gonzales COMMENT: 2x weekly NSTs. s/p Endocrinology and Nutrition; on insulin. Normal growth and echo with MFM on 08/19/20. Growth with [facility] at 32 weeks.deliver at 39, growth US nl on 10/17, nl BPP (2) ASCUS of cervix with negative high risk HPV: COMMENT: repeat pap 2023 (3) Obesity affecting : QUALIFIERS: Trimester: second trimester Qualified Code(s): O99.212 - Obesity complicating , second trimester COMMENT: 1 tm glucola, encourage healthy weight gain. (4) Supervision of normal : QUALIFIERS: Normal : normal first Trimester: second trimester Qualified Code(s): Z34.02 - Encounter for supervision of normal first , second trimester COMMENT: PRR girl! Mary Ellen SUSAN: 12/11/20 Spouse: Lance (5) : QUALIFIERS: Weeks of gestation: 38 weeks Qualified Code(s): Z3A.38 - 38 weeks gestation of COMMENT: genetic- low risk and carrier-. declined afp screen. nl anatomy. nl growth 11/14/20, GBS NEGATIVE (6) Encounter for induction of labor: (7) Arrest of dilation, delivered, current hospitalization: (8) Delivery by section: COMMENT: GDM A2 IOL 39 SM LT CS arrest of dilation 6 cm Maternal Data Information SUSAN Calculator Estimated Delivery Date Method Current WG Current Estimate 12/11/20 Ultrasound #1 39w 4d Final SUSAN Source: LMP Gestational age: 39 Details Operative Information Post-Operative Diagnosis: same Procedure Type: low transverse Type of Anesthesia: Epidural Special Medications: none Drain: Rodgers to straight drain Fluids Replaced: crystalloid Findings Description of Procedure: Patient was induced with Cytotec followed by Rodgers bulb and Pitocin, had spontaneous rupture membranes meconium fluid. After almost 24 hours of rupture of membranes and Pitocin patient had an arrest of dilation for 5 hours of adequate contractions at 6 cm. Decision was made for a primary low transverse . The patient was placed in the dorsal supine position with leftward tilt. Patient was prepped and draped in the normal sterile fashion. Pfannenstiel skin incision was made with the scalpel and carried through to the underlying layer of fascia with the scalpel. Fascia was nicked in the midline and the incision extended laterally. The rectus bellies were dissected off superiorly and inferi manoj with out complication both sharply and bluntly. The peritoneum was entered digitally. The incision was stretched and a low transverse uterine incision was made with the scalpel. The infant's head was delivered atraumatically followed by the anterior and posterior shoulders without complication the rest of the delivered. The cord was clamped and cut and the infant was handed off to awaiting nurse. The placenta was delivered spontaneously immediately following and was noted to be intact and have a three-vessel cord. The uterus was exteriorized cleared of all clots and debris, and the incision was closed in a double layer closure using #1 Monocryl. The ovaries and fallopian tubes were noted to be within normal limits. The uterus was returned to the maternal abdomen and gutters were cleared of all clots and debris. The peritoneum was closed with 3-0 Monocryl in a running fashion. Gloves were changed prior to fascial closure. Fascia was closed with 0 PDS in a running fashion. Subcutaneous tissue was copiously irrigated and the skin was closed with 3-0 Monocryl in a subcuticular fashion. Mepilex dressing was applied without complication. Patient was taken to recovery in stable condition. It was discussed with the patient that based on the clinical information obtained during this encounter, combined with her history, at this time I would recommend cesareans for future deliveries if further pregnancies are desired. Amniotic Membrane Rupture Type: Artificial Amniotic Fluid Description: Clear Placental Delivery Description: Spontaneous Placenta Disposition: [facility] Cord Vessel Description: 3 Vessels Cord Entanglement: None Delayed Cord Clamping: Yes Complications Risks of Surgery Discussed w/Patient: Bleeding, Infection, Need for Future C- Sections and Injury to surrounding structure(s) including bowel and bladder Complications: none Admit VTE Documentation VTE Present on Admission: No VTE Mechan Device Prophylaxis: SCD's Procedures Urinary/Genital [id number]: [id number] Delivery [facility]
[2020-12-07 12:00] LABS: Bedside Glucose 66 mg/dL (70-110)
[2020-12-07] MEDS: Cefazolin 2 GM in 0.9% Normal Saline 100 ML IV ×2 (12:00→18:17)
[2020-12-07] MEDS: Oxytocin 30 units/NS 500 ml 30 UNITS/500 ML IV.SOLN 167 UNITS IV (14:05)
[2020-12-07 15:13] LABS: Pathology Specimen OB SEE PATHOLOGY REPORT
[2020-12-07 15:26] LABS: Bedside Glucose 89 mg/dL (70-110)
[2020-12-07] MEDS: Ketorolac 30 MG/ML Syringe IV ×2 (16:20→22:30)
[2020-12-07] MEDS: Lactated Ringers 1,000 ML 100 ML IV (16:45)
[2020-12-07] MEDS: Acetaminophen 500 MG Tablet 1000 MG PO (17:24)
--- NOTE | 2020-12-07 18:30 | NURSING ---
epidural catheter removed without difficulty. blue tip intact.
[2020-12-07] MEDS: 0.9% Saline Lock 10 ML Syringe IV (22:29)
[2020-12-08] VITALS (14 sets, daily range): BP systolic 96–134; BP diastolic 54–80; PULSE 70–130; RESP 16–18; TEMP 36–37.3; O2SAT 92–100
[2020-12-08] MEDS: Acetaminophen 500 MG Tablet 1000 MG PO ×4 (00:06→18:42)
[2020-12-08] MEDS: Enoxaparin 40 MG/0.4 ML Syringe SC ×3 (00:06→22:09)
[2020-12-08] MEDS: Ketorolac 30 MG/ML Syringe IV ×2 (04:27→10:10)
[2020-12-08] MEDS: 0.9% Saline Lock 10 ML Syringe IV ×2 (04:27→10:11)
[2020-12-08 06:36] LABS: Bedside Glucose 118 mg/dL (70-110)
[2020-12-08 06:39] LABS: Hematocrit 34.3 % (37-47); Hemoglobin 11.2 g/dL (12.0-15.0); Mean Corp Hgb Conc 32.7 g/dL (32-36); Mean Corpuscular Hgb 31.7 pg (27.0-32.0); Mean Corpuscular Volume 97.2 fL (81-99); Platelet Count 184 K/mm3 (150-450); RBC Distribution Width CV 12.9 % (11.6-14.6); Red Blood Count 3.53 M/mm3 (4.2-5.4); White Blood Count 26.1 K/mm3 (4.4-11.0)
--- NOTE | 2020-12-08 08:05 | PCM.PN.OB ---
Subjective Subjective Patient doing well without complaints. Tolerating PO. Ambulating and voiding without difficulty. Feeding well. Denies chest pain, shortness of breath, calf pain/swelling, fevers, chills, lightheadedness. Noted elevated WBC this AM. Objective Data Objective Data Vital Signs: Vital Signs Temp Pulse Resp BP Pulse Ox 97.9 F 70 18 96/55 L 97 12/08/20 06:40 12/08/20 06:40 12/08/20 06:40 12/08/20 04:33 12/08/20 06:40 Oxygen Delivery Method Room Air Weight: 232 lb Body Mass Index (BMI) 41.1 Intake & Output: Intake and Output for Last 24 Hours 12/06/20 12/07/20 12/08/20 23:59 23:59 23:59 Intake Total 1523.30 / 1523.30 5006.44 / 5006.44 Output Total 800 / 800 2375 / 2375 875 / 875 Balance 723.30 / 723.30 2631.44 / 2631.44 -875 / -875 Lab / Micro Data Result Diagrams: 12/08/20 06:27 Labs: Laboratory Results - last 24 hr 12/07/20 07:56: POC Glucose 90 12/07/20 09:02: POC Glucose 101 12/07/20 10:16: POC Glucose 81 12/07/20 11:55: POC Glucose 66 L 12/07/20 14:54: POC Glucose 89 12/08/20 06:18: POC Glucose 118 H 12/08/20 06:27: WBC 26.1 H, RBC 3.53 L, Hgb 11.2 L, Hct 34.3 L, MCV 97.2, MCH 31.7, MCHC 32.7, RDW Std Deviation 46.0 H, RDW Coeff of Liliana 12.9, Plt Count 184, MPV 10.0 Micro: Microbiology 12/05/20 20:35 Mucosa - Nose SARS-CoV-2 Antigen (Rapid) - Final Physical Exam Const alert and oriented x3 HEENT normocephalic Eyes PERRL Neck full ROM Resp normal respiratory effort GI soft to palpation GI Narrative: FF below U. Dressing dry and intact; old drainage only. Palpation: tender other (appropriately) Assessment & Plan (1) Delivery by section: COMMENT: GDM A2 IOL 39 SM LT CS arrest of dilation 6 cm PLAN: s/p LTCS PPD # 1 1. routine post care 2. breast feeding- support given 3. rh positive 4. rubella immune 5. Afebrile-will monitor
[2020-12-08] MEDS: Senna/Docusate Sodium 1 Tablet PO (10:11)
[2020-12-08] MEDS: oxyCODONE 5 MG Tablet PO ×2 (14:56→22:08)
--- NOTE | 2020-12-08 17:12 | NURSING ---
Pt HR 130 after patient just got out of shower. Pt states that she got herself worked up and was anxious about falling. Denies SOB or chest pain. Will update MD and recheck HR once patient settles down a bit
[2020-12-08] MEDS: Naproxen 500 MG Tablet PO (18:41)
--- NOTE | 2020-12-08 19:28 | NURSING ---
Called Dr. Dupont at 192 about HR of 115, that patient's temp was 99.5 temporally and 98.5 orally and BP was WNL. Informed her that patient was under several heavy blankets and that she stated that she felt cold. Orders received for CBC and Lactate to be Drawn now. Informed manufacturing shift supervisor nurse Loreto Thompson RN of new orders at 1929. States that she will draw the labs.
[2020-12-08 21:04] LABS: Absolute Lymphocyte Count 1.36 X10^3/uL (0.83-4.51); Absolute Neutrophil Count 16.3 X10^3/uL (2.0-7.7); Basophil# 0.04 X10^3/uL; Basophil% 0.2 % (0-1); Eosinophil# 0.07 X10^3/uL; Eosinophils% 0.4 % (0-5); Hematocrit 31.8 % (37-47); Hemoglobin 10.8 g/dL (12.0-15.0); Lymphocyte # 1.36 X10^3/ul (0.83-4.51); Lymphocyte % 7.3 % (19-41); Mean Corpuscular Volume 94.4 fL (81-99); Mean Platelet Vol. 9.8 fl (6.2-12.0); Monocyte# 0.76 X10^3/uL; Monocyte% 4.1 % (0-10); NRBC Flagged by Analyzer 0 % (0-5); Neutrophil # 16.27 X10^3/uL (2.7-7.7); Neutrophil % 87.4 % (47-70); Platelet Count 173 K/mm3 (150-450); RBC Distribution Width SD 44.9 fl (35.1-43.9); Red Blood Count 3.37 M/mm3 (4.2-5.4); White Blood Count 18.6 K/mm3 (4.4-11.0)
[2020-12-08 21:36] LABS: LDH 240 U/L (84-246)
[2020-12-09] MEDS: Acetaminophen 500 MG Tablet 1000 MG PO ×4 (00:08→18:21)
[2020-12-09] MEDS: Naproxen 500 MG Tablet PO ×3 (02:35→18:20)
[2020-12-09 02:43] VITALS: BP 134/64; PULSE 100; RESP 18; TEMP 36.9; O2SAT 100
--- NOTE | 2020-12-09 07:50 | PN.OBGYN_ITS ---
Subjective Subjective Patient doing well without complaints. Tolerating PO. Ambulating and voiding without difficulty. Feeding well. Denies chest pain, shortness of breath, calf pain/swelling, fevers, chills, lightheadedness. Objective Data Objective Data Vital Signs: Vital Signs Temp Pulse Resp BP Pulse Ox 98.4 F 100 18 134/64 H 100 12/09/20 02:43 12/09/20 02:43 12/09/20 02:43 12/09/20 02:43 12/09/20 02:43 Oxygen Delivery Method Room Air Weight: 232 lb Body Mass Index (BMI) 41.1 Intake & Output: Intake and Output for Last 24 Hours 12/07/20 12/08/20 12/09/20 23:59 23:59 23:59 Intake Total 5043.77 / 5043.77 Output Total 2375 / 2375 875 / 875 Balance 2668.77 / 2668.77 -875 / -875 Lab / Micro Data Result Diagrams: 12/08/20 20:52 Labs: Laboratory Results - last 24 hr 12/08/20 20:52: WBC 18.6 H, RBC 3.37 L, Hgb 10.8 L, Hct 31.8 L, MCV 94.4, MCH 32.0, MCHC 34.0, RDW Std Deviation 44.9 H, RDW Coeff of Liliana 13.0, Plt Count 173, MPV 9.8, Immature Gran % (Auto) 0.600, Neut % (Auto) 87.4 H, Lymph % (Auto) 7.3 L, [place] % (Auto) 4.1, Eos % (Auto) 0.4, Baso % (Auto) 0.2, Absolute Neuts (auto) 16.3 H, Absolute Lymphs (auto) 1.36, Nucleated RBC % 0 12/08/20 20:52: Lactate Dehydrogenase 240 Micro: Microbiology 12/05/20 20:35 Mucosa - Nose SARS-CoV-2 Antigen (Rapid) - Final Physical Exam Const alert and oriented x3 HEENT normocephalic Eyes PERRL Neck full ROM Resp normal respiratory effort GI soft to palpation GI Narrative: FF below U. Dressing dry and intact Palpation: tender other (appropriately) Assessment & Plan (1) Delivery by section: COMMENT: GDM A2 IOL 39 SM LT CS arrest of dilation 6 cm (2) Gestational diabetes: QUALIFIERS: Trimester: second trimester Gestational diabetes mellitus control: oral hypoglycemic-controlled Qualified Code(s): O24.415 - Gestational diabetes mellitus in , controlled by oral hypoglycemic drugs COMMENT: 2x weekly NSTs. s/p Endocrinology and Nutrition; on insulin. Normal growth and echo with MFM on 08/19/20. Growth with [facility] at 32 weeks.deliver at 39, growth US nl on 10/17, nl BPP PLAN: s/p LTCS PPD # 2 1. routine post care 2. breast feeding- support given 3. rh positive 4. rubella immune 5. blood sugars WNL 6. plans home tomorrow
[2020-12-09 08:20] VITALS: BP 142/55; PULSE 91; RESP 16; TEMP 36.7; O2SAT 98
[2020-12-09] MEDS: Senna/Docusate Sodium 1 Tablet PO (10:15)
[2020-12-09] MEDS: Enoxaparin 40 MG/0.4 ML Syringe SC (10:16)
[2020-12-09 14:25] VITALS: BP 137/62; PULSE 91; RESP 16; TEMP 37
--- NOTE | 2020-12-10 12:26 | PCM.DC.SUM ---
Providers Date of Admission: 12/05/20 Primary Care Physician: Heidi Primary Care Phys Reason For Visit: PRIMARY Diagnosis Discharge Diagnosis (1) Delivery by section: Status: Acute (2) Gestational diabetes: Status: Acute Code(s): O24.419 - Gestational diabetes mellitus in , unspecified control Qualifiers: Trimester: second trimester Gestational diabetes mellitus control: oral hypoglycemic-controlled Qualified Code(s): O24.415 - Gestational diabetes mellitus in , controlled by oral hypoglycemic drugs Medications at Discharge Home Medications multivitamin no.47-iron fum 27 mg-folate no.1 1 mg-dha 300 mg capsule 1 cap PO DAILY 04/25/20 blood-glucose meter #1 ea 06/06/20 lancets 30 gauge #100 ea 06/06/20 blood sugar diagnostic #200 ea 06/19/20 pen needle, diabetic 32 gauge x #100 ea 11/12/20 insulin NPH isoph U-100 human [Novolin N Flexpen] 28 unit SUBCUT QPM 12/05/20 metformin 1,000 mg PO BID 12/05/20 naproxen 250 - 500 mg PO Q8H PRN PRN #30 tab 12/09/20 oxycodone-acetaminophen [Percocet] 1 tab PO Q6H PRN 7 Days #20 tab 12/09/20 Hospital Course Summary of Care Provided Hospital Course: patient presented for IOL secondary to GDMA2. she underwent IOL and had an arrest of dilation and underwent primary . she developed triple I at [facility] and was given antibiotics. Postoperatively patient had return of bowel and bladder function and was ambulating well, tolerating adequate p.o., and was stable for discharge to home on postop day #2. Discharge medications naproxen and Percocet. Follow-up in office in 2 weeks for incision check in 6 weeks for visit. Routine post section diet and activity instructions. Weight / BMI Weight Weight: 232 lb Body Mass Index (BMI) 41.1 ABG / Lab / Microbiology Data Result Diagrams: 12/08/20 20:52 Microbiology: Microbiology 12/05/20 20:35 Mucosa - Nose SARS-CoV-2 Antigen (Rapid) - Final D/C Instructions Discharge Diet: No restrictions Discharge Activity: May Not Drive (for 2 weeks or while taking narcotic pain medications.), May Shower and May Take a Tub Bath (in 7 days) May shower in (days): 0 May resume sexual activity in: 4-6 weeks Weight Bearing Status: Full weight bearing Call your doctor if your incision/area has: Continuous Slow Oozing, Sudden Increased Bleeding, Increased Pain/ Swelling, Increased Redness and Foul Smelling Discharge Call your doctor if you observe: Fever of 101 or Higher and Using more than 1 pad per hour (for 2 hours) Suture Line Care: Avoid Pulling/Pushing and Avoid Pinching/Bending Cleanse incision/area with: Soap & Water and Keep Dressing Clean & Dry Please Follow Up With: Jannet Dupont MD When: Call [phone] to make an appointment for an incision check in 1-2 weeks. Meaningful Use Info Meaningful Use Diagnoses (Choose all that apply): None applicable Discharge Plan Admission Admit Date/Time: 12/05/20 19:55 Attending Provider: Jannet Dupont Primary Care Provider: Care Physician,No Primary Discharge Orders/Prescriptions Prescriptions: New naproxen 250 MG tablet 250 - 500 mg PO Q8H PRN PRN (Reason: MILD PAIN) Qty: 30 RF: 1 oxycodone-acetaminophen [Percocet] 5-325 mg tablet 1 tab PO Q6H PRN (Reason: pain) 7 Days Qty: 20 RF: 0 No Action PNV-DHA 27 mg iron-1 mg -300 mg capsule 1 cap PO DAILY RF: 0 (DME) lancets 30 gauge misc See Rx Instructions ea .ROUTE .MEDSUPPLY Qty: 100 RF: 0 (DME) blood-glucose meter Misc See Rx Instructions ea .ROUTE .MEDSUPPLY Qty: 1 RF: 0 metformin 1,000 mg tablet 1,000 mg PO BID RF: 0 Novolin N Flexpen 100 unit/mL (3 mL) insulin pen 28 unit subcut QPM RF: 0 (DME) blood sugar diagnostic Strip See Rx Instructions ea .ROUTE .MEDSUPPLY Qty: 200 RF: 8 (DME) pen needle, diabetic [BD Ultra-Fine Tabatha Pen Needle] 32 gauge x 5/32 needle See Rx Instructions .ROUTE .MEDSUPPLY Qty: 100 RF: 1 Referrals / Follow Up: Care Physician,No Primary [Primary Care Provider] - Disposition Disposition (needs filled in before D/C Order can be placed): Home, Self Care
== END 2020-12-09 19:32 | disposition home or self-care (01) | DRG 788 ==
PROVIDERS: Obstetrics & Gynecology; Admitting Provider Obstetrics & Gynecology; Visit Provider Obstetrics & Gynecology
DX: O62.0 Primary inadequate contractions (principal); Z37.0 Single live birth; Z3A.39 39 weeks gestation of pregnancy; O24.425 Gestational diabetes mellitus in childbirth, controlled by oral hypoglycemic drugs; O99.214 Obesity complicating childbirth; E66.9 Obesity, unspecified; R87.610 Atypical squamous cells of undetermined significance on cytologic smear of cervix (ASC-US); O77.0 Labor and delivery complicated by meconium in amniotic fluid
CPT/HCPCS: 59025; 59050; 82962; 83615; 85025; 85027; 86850; 86900; 86901; 87426; 88307; 99218; J7120; A4216; G0378; J2405

== ENCOUNTER → 2020-12-18 07:06 | Outpatient (CLI) | payer OTHER, SELFPAY | PROVIDERS: Referring Provider Obstetrics & Gynecology; Visit Provider Obstetrics & Gynecology | DX: T14.8XXA Other injury of unspecified body region, initial encounter (principal) | CPT/HCPCS: 87070; 87075; 87077; 87186; 87205 ==

== ENCOUNTER → 2020-12-23 14:22 | Outpatient (CLI) | payer OTHER, SELFPAY ==
--- NOTE | 2020-12-23 14:23 | US_ITS ---
STUDY: ABDOMINAL ULTRASOUND - RIGHT UPPER QUADRANT REASON FOR VISIT: Female, 25 years old . Recent . Pain. TECHNIQUE: Ultrasound evaluation of the right upper quadrant was performed with real-time and static graham-scale imaging. TECHNICAL QUALITY: Adequate. COMPARISON: None. FINDINGS: The anterior abdominal wall was examined. Just caudad to the umbilicus, there is a 2.5 cm x 6.4 cm x 2.2 cm hypoechoic collection. This may represent a resolving hematoma. US/Abdomen Limited IMPRESSION: Findings suggestive of a 2.5 cm x 6.4 cm x 2.2 cm resolving hematoma deep to the anterior abdominal wall incision. Electronically Signed: Lazaro Schofield MD at 15:45 EDT , Service support ,
--- NOTE | 2020-12-23 14:23 | US_ITS ---
STUDY: ULTRASOUND OF THE FEMALE PELVIS - COMPLETE REASON FOR EXAM: Female, 25 years old. Post abdominal pain and drainage from the incision site. LMP: TECHNIQUE: Transvaginal TECHNICAL QUALITY: Adequate. COMPARISON: None. FINDINGS: The uterus is anteverted and is in a midline position. The uterus measures 11 cm x 7.2 cm x 6.9 cm. Normal uterine cervix. The endometrium measures 9 mm in thickness, and is hyperechoic. There is no demonstrated endometrial mass. There is no demonstrated myometrial mass. I.U.D. - The patient does not have an I.U.D. The right ovary is non-visualized. The left ovary is non-visualized. There is minimal fluid in the cul-de-sac. US/Transvaginal Non- IMPRESSION: Minimal fluid in the cul-de-sac. Electronically Signed: Lazaro Schofield MD at 15:48 EDT , Service support ,
== END ==
PROVIDERS: Referring Provider Nurse Practitioner Women's Health; Visit Provider Nurse Practitioner Women's Health
DX: T81.49XA Infection following a procedure, other surgical site, initial encounter (principal); G89.18 Other acute postprocedural pain
CPT/HCPCS: 76705; 76830

== ENCOUNTER → 2020-12-25 09:01 | Outpatient (CLI) | payer OTHER, SELFPAY ==
--- NOTE | 2020-12-25 09:10 | CT_ITS ---
STUDY: CT ABDOMEN AND PELVIS WITH CONTRAST REASON FOR EXAM: Female, 25 years old. Abdominal wound post c/s RADIATION DOSAGE (If Supplied By Facility): CTDIvol = ( 19.73 ) mGy, DLP = ( 1043.53 ) mGycm TECHNIQUE: Transaxial images were obtained from the dome of the diaphragm to the symphysis pubis without oral contrast. IV 100ML ISOVUE 370 was administered. Sagittal and coronal images were reconstructed. Individualized dose optimization techniques were used for this CT. COMPARISON: Comparison is made with prior ultrasound of the abdomen dated 12/23/2020. FINDINGS: The visualized lung bases are unremarkable. The visualized portions of the heart are within normal limits. Normal liver. Normal gallbladder and extrahepatic biliary system. Normal spleen. Normal pancreas. Normal bilateral adrenal glands. Normal right kidney. Normal left kidney. Normal visualized stomach. Normal small intestine. Normal colon. The appendix is visualized and appears normal. Normal abdominal aorta. Normal inferior vena cava. Normal retroperitoneum. Normal urinary bladder. There is evidence of diffuse thickening of the rectus sheath caudad to the umbilicus. This most likely represents postoperative hematoma. Within the central portion of the rectus sheath, there is a 5.3 cm x 2.4 cm well-defined fluid collection. This may represent a postoperative seroma or early abscess. Minimal increased markings in the surrounding subcutaneous fat. This also evidence of a 2.1 cm x 1.8 cm well-defined rounded density with air in the subcutaneous fat along the right lower anterior/upper abdominal wall most likely representing a postoperative change. Normal osseous structures. CT/Abdomen/Pelvis W IV Cont ONLY IMPRESSION: Rectus sheath thickening as described with a central collection of fluid measuring 5.3 cm x 2.4 cm suggestive of either postoperative seroma or possibly early abscess. Focal air collection in the subcutaneous fat on the right lower anterior abdominal/pelvic wall most likely at the suture line. Electronically Signed: Lazaro Schofield MD at 9:45 EDT , Service support ,
== END | disposition home or self-care (01) ==
PROVIDERS: Referring Provider Obstetrics & Gynecology; Visit Provider Obstetrics & Gynecology
DX: T81.49XA Infection following a procedure, other surgical site, initial encounter (principal); R30.0 Dysuria
CPT/HCPCS: 74177; 87070; 87077; 87086; 87088; 87186; 87205; Q9967; A4216

== ENCOUNTER → 2020-12-26 08:05 | Outpatient (CLI) | payer OTHER, SELFPAY ==
[2020-12-26] VITALS (11 sets, daily range): BP systolic 108–130; BP diastolic 65–92; PULSE 88–105; RESP 17–27; TEMP 36.7; O2SAT 94–98; BMI 39.1
--- NOTE | 2020-12-26 08:06 | CT_ITS ---
PROCEDURE: CT DIRECTED ABSCESS DRAINAGE, abdominal wall DATE OF EXAMINATION: 12/26/2020. INDICATION: Female, 25 years old. Anterior abdominal wall fluid collection following section. PHYSICIAN: Lazaro Schofield M.D. CONSENT: Written informed consent was obtained having explained the risks, benefits and alternatives in detail with the patient who accepted the risks and agreed to proceed. Laboratory review and clinical assessment was performed. CONSCIOUS SEDATION PROTOCOL: The Drugs used were: 2 mg Versed, IV., and 50 mcg Fentanyl, IV. The sedation time was: 24 minutes. The conscious sedation protocol was independently monitored. RADIATION DOSAGE (If Supplied By Facility): CTDIvol = ( 21.3 ) mGy, DLP = ( 1166.92 ) mGycm. Individualized dose optimization techniques were utilized. TECHNIQUE: CT sections were made through the abdomen and pelvis revealing an abscess in the anterior abdominal wall. The skin surface was prepped and draped in a sterile fashion. Puncture of this collection was performed initially with a 18-gauge Chiba needle and fluid was aspirated. Drainage catheter was then inserted into the collection and formed into position. Additional fluid was aspirated for a total of approximately 12 cc of cloudy red fluid. CT/CT Guidance Abscess Drg w/Cath IMPRESSION: 1. CT directed drainage of a fluid collection using CT image guidance and image documentation as described. 2. Conscious Sedation protocol utilized with independent monitoring Electronically Signed: Lazaro Schofield MD at 10:06 EDT , Service support ,
[2020-12-26] MEDS: Midazolam 2 MG/2 ML Syringe IV (08:59)
[2020-12-26] MEDS: fentaNYL 100 MCG/2 ML Ampul IV (09:00)
[2020-12-26] MEDS: 0.9 % NaCl (Sterile) Posiflush 10 mL IV (09:00)
[2020-12-26] MEDS: Lidocaine 2% (20 ml mdv) 20 ML Vial INFILT (09:20)
== END | disposition home or self-care (01) ==
PROVIDERS: Referring Provider Obstetrics & Gynecology; Visit Provider Obstetrics & Gynecology
DX: L02.211 Cutaneous abscess of abdominal wall (principal)
CPT/HCPCS: 49406; 75989; 99156; 99157; J7040; A4216

== ENCOUNTER → 2020-12-31 15:40 | Outpatient (CLI) | payer OTHER, SELFPAY | PROVIDERS: Referring Provider Obstetrics & Gynecology; Visit Provider Obstetrics & Gynecology | DX: T81.49XA Infection following a procedure, other surgical site, initial encounter (principal) | CPT/HCPCS: 87070; 87077; 87186; 87205 ==

== ENCOUNTER → 2022-07-02 | Outpatient (CLI) | payer OTHER, SELFPAY ==
[2022-07-02 15:07] LABS: Absolute Lymphocyte Count 2.93 X10^3/uL (0.83-4.51); Absolute Neutrophil Count 7.3 X10^3/uL (2.0-7.7); Basophil# 0.06 X10^3/uL; Basophil% 0.5 % (0-1); Eosinophil# 0.09 X10^3/uL; Eosinophils% 0.8 % (0-5); Hemoglobin 12.8 g/dL (12.0-15.0); Lymphocyte # 2.93 X10^3/ul (0.83-4.51); Lymphocyte % 26.5 % (19-41); Mean Corp Hgb Conc 32.8 g/dL (32-36); Mean Corpuscular Volume 94.4 fL (81-99); Mean Platelet Vol. 9.2 fl (6.2-12.0); Monocyte# 0.57 X10^3/uL; Monocyte% 5.2 % (0-10); NRBC Flagged by Analyzer 0 % (0-5); Neutrophil # 7.33 X10^3/uL (2.7-7.7); Neutrophil % 66.4 % (47-70); Platelet Count 319 K/mm3 (150-450); RBC Distribution Width CV 11.5 % (11.6-14.6); RBC Distribution Width SD 39.7 fl (35.1-43.9); Red Blood Count 4.13 M/mm3 (4.2-5.4); White Blood Count 11.1 K/mm3 (4.4-11.0)
[2022-07-02 16:07] LABS: Hemoglobin A1c 5.4 % (3.8-5.6)
[2022-07-02 16:36] LABS: HIV - WCH Non-Reactive (Nonreactive); Hepatitis B Surface Antigen Non-Reactive (Nonreactive); Hepatitis C Antibody Non-Reactive (Nonreactive); Rubella IgG Reactive (Nonreactive); Syphilis Antibodies Non-reactive
[2022-07-06 00:07] LABS: Chlamydia By Nucleic Acid AMP Negative (Negative)
[2022-07-06 08:59] LABS: Gonococcus By Nucleic Acid AMP Negative (Negative)
== END | disposition home or self-care (01) ==
PROVIDERS: Referring Provider Obstetrics & Gynecology; Visit Provider Obstetrics & Gynecology
DX: O09.90 Supervision of high risk pregnancy, unspecified, unspecified trimester (principal); Z3A.00 Weeks of gestation of pregnancy not specified
CPT/HCPCS: 36415; 83036; 85025; 86703; 86762; 86780; 86803; 86850; 86900; 86901; 87086; 87088; 87340; 87491; 87591

== ENCOUNTER → 2022-08-30 | Outpatient (CLI) | payer OTHER, SELFPAY ==
[2022-08-30 18:10] LABS: Protein, Urine (Random) 19.1 mg/dL (<11.9); Protein:Creat Ratio 175 mg/g CRE (0-200)
== END | disposition home or self-care (01) ==
PROVIDERS: Visit Provider Obstetrics & Gynecology
DX: O24.319 Unspecified pre-existing diabetes mellitus in pregnancy, unspecified trimester (principal); Z3A.00 Weeks of gestation of pregnancy not specified
CPT/HCPCS: 82570; 84156

== ENCOUNTER → 2022-11-25 | Outpatient (CLI) | payer OTHER, SELFPAY ==
[2022-11-25 12:32] LABS: Absolute Lymphocyte Count 2.87 X10^3/uL (0.83-4.51); Absolute Neutrophil Count 8.3 X10^3/uL (2.0-7.7); Basophil# 0.05 X10^3/uL; Basophil% 0.4 % (0-1); Eosinophils% 0.8 % (0-5); Hemoglobin 12.3 g/dL (12.0-15.0); Lymphocyte # 2.87 X10^3/ul (0.83-4.51); Lymphocyte % 23.8 % (19-41); Mean Corp Hgb Conc 32.4 g/dL (32-36); Mean Corpuscular Hgb 30.8 pg (27.0-32.0); Mean Platelet Vol. 9.3 fl (6.2-12.0); Monocyte% 5.8 % (0-10); NRBC Flagged by Analyzer 0 % (0-5); Neutrophil # 8.29 X10^3/uL (2.7-7.7); Neutrophil % 68.7 % (47-70); Platelet Count 250 K/mm3 (150-450); RBC Distribution Width CV 12.3 % (11.6-14.6); RBC Distribution Width SD 42.7 fl (35.1-43.9); White Blood Count 12.1 K/mm3 (4.4-11.0)
[2022-11-25 13:29] LABS: HIV - WCH Non-Reactive (Nonreactive); Syphilis Antibodies Non-reactive
== END | disposition home or self-care (01) ==
LOC: LAB 11:56
PROVIDERS: Referring Provider Advanced Practice Midwife; Visit Provider Advanced Practice Midwife
DX: O09.90 Supervision of high risk pregnancy, unspecified, unspecified trimester (principal); Z3A.00 Weeks of gestation of pregnancy not specified
CPT/HCPCS: 36415; 85025; 86703; 86780

== ENCOUNTER 2022-12-10 19:00 | Outpatient (CLI) | payer OTHER, SELFPAY ==
[2022-12-10 19:29] VITALS: TEMP 36.7
[2022-12-10 19:37] VITALS: BMI 38.0
--- NOTE | 2022-12-10 20:15 | OB.TRI.PN_ITS ---
Progress Notes Date of Service: 12/10/22 Progress Note: Patient presents for triage evaluation secondary to scheduled NST FHT: 125 Moderate variability reactive no decelerations category I tracing [place]: No Contractions Assessment and plan: Reactive NST, reassuring maternal and status patient discharged to home to follow-up in office at next appt. See problem list details for additional plan information. Charges/Coding Multi Select Codes Urinary/Genital Urinary/Genital CPT Codes: 77709-67 non-stress test Interp Assessment & Plan (1) Modified White class B pregestational diabetes mellitus: COMMENT: baseline labs ordered. ekg/optho consult recommended. dr. de dios managing. NPH 52 at night, 14u in AM 09/29. nl echo twice weekly NST(doing evenings at [facility]) w growth US Q4w at 32 wk:12/16- (2) Desires (vaginal after ) trial: COMMENT: PLANS RPT C/S w/ JV. History of C/S with dehiscence. Had wound packing in office until healed. chance of successful only 46% and recommend repeat elective as will need delivery at 39 weeks RLTCS BS 01/26 JV @ 7:30 (3) Supervision of high risk , antepartum: COMMENT: PRR SUSAN 02/01/23 PC: Mary Ellen Spouse: Lance (4) : QUALIFIERS: Weeks of gestation: 26 weeks Qualified Code(s): Z3A.26 - 26 weeks gestation of COMMENT: NIPT declines , nl echo (5) ASCUS of cervix with negative high risk HPV: COMMENT: repeat pap 2023 (6) Acid reflux:
== END 2022-12-10 20:12 | disposition home or self-care (01) ==
LOC: WPOUT 19:11 → WP 19:12
PROVIDERS: Visit Provider Obstetrics & Gynecology
DX: O24.112 Pre-existing type 2 diabetes mellitus, in pregnancy, second trimester (principal); O99.612 Diseases of the digestive system complicating pregnancy, second trimester; K21.9 Gastro-esophageal reflux disease without esophagitis; Z3A.26 26 weeks gestation of pregnancy
CPT/HCPCS: 59025; 59050; 99221; G0378

== ENCOUNTER 2022-12-13 19:05 | Outpatient (CLI) | payer OTHER, SELFPAY ==
[2022-12-13 19:23] VITALS: TEMP 36.6
[2022-12-13 19:25] VITALS: PULSE 105; O2SAT 99
[2022-12-13 19:26] VITALS: BMI 44.6
[2022-12-13 19:28] VITALS: BP 133/76; PULSE 88
--- NOTE | 2022-12-15 14:14 | OB.TRI.HP_ITS ---
HPI - General General Date of Admission: 12/13/22 Date of Service: 12/13/22 HPI Narrative GUILLERMO VILLASEÑOR, is a 27 F who presents at 32+5 for scheduled NST for insulin controlled diabetes. Maternal Data Information SUSAN Calculator Estimated Delivery Date Method Current WG Current Estimate 02/01/23 LMP (Certain) 33w 1d Other Estimates 01/29/23 Ultrasound #1 33w 4d PFSH PFSH Medical History Asthma Gestational diabetes Home Medications prenat.vits,scott,qkm-xzln-taeci 1 tab PO DAILY 06/23/22 [History Last Taken Unknown] Novolin N FlexPen 100 unit/mL (3 mL) subcutaneous insulin pen (insulin NPH isoph U-100 human) 35 unit (0.35 mL) subcut QAM #15 mL 06/29/22 [Rx Last Taken Unknown] OneTouch Verio test strips (blood sugar diagnostic) #150 ea 06/29/22 [Rx Last Taken Unknown] lancets 33 gauge (OneTouch Delica Plus Lancet) #150 ea 06/29/22 [Rx Last Taken Unknown] pen needle, diabetic 32 gauge x 5/32 (BD Ultra-Fine Tabatha Pen Needle) #100 ea 06/29/22 [Rx Last Taken Unknown] Novolin N FlexPen 100 unit/mL (3 mL) subcutaneous insulin pen (insulin NPH isoph U-100 human) See Rx Instructions subcut QPM #18 mL 10/05/22 [Rx Last Taken Unknown] famotidine 20 mg tablet (Pepcid) 20 mg PO DAILY #30 tabs 10/27/22 [Rx Last Taken Unknown] blood-glucose sensor (Dexcom G7 Sensor device) #3 ea 11/25/22 [Rx Last Taken Unknown] Allergy/AdvReac Type Severity Reaction Status Date / Time shellfish derived AdvReac Severe Swelling Verified 12/13/22 19:26 Family History Mother Hypertension H/O HELLP syndrome Grandmother Kidney disease poly cystic kidney disease Aunt Liver disease poly cystic liver disease Grandfather Diabetes Surgical History H/O knee surgery (~2007) H/O wisdom tooth extraction Hx of tonsillectomy Social History adopted: No household members: spouse and children housing: house number of children: 1 current occupational status: employed current occupation: [employer] current occupational exposures/hazards: No pets and animals: Yes pets and animals: dog(s) history of recent travel: No sexually active: Yes Smoking Status: Never smoker second hand exposure: No alcohol intake: current details: not while substance use type: does not use well-balanced diet: daily or most days caffeine: Yes Type: carbonated beverages Number of servings: 2 and coffee Number of servings: 1 seatbelt use: always do you feel safe at home: Yes additional social history: - Lance Villaseñor ([employer]) History 2 Elective abortions Hx Para 1 Spontaneous abortions Hx # Term Pregnancies 1 Ectopic pregnancies Hx # Pregnancies Multiple births # of living children 1 Past Pregnancies Del. Date Name GA/Weeks Outcome Route Bth Weight Gen Labor Lgth Anesthesia Del Locatn Provider FOB 12/07/20 Mary Ellen 39 live - full term 6lbs 2oz Female [facility] Delivery Date: 12/07/20 Last Updated by: Francesca Boston [facility] Visit Details Expected Delivery Route/Plan patient counseled regarding risks/benefits of trial of labor versus repeat . ACOG/uptodate education given to patient. 46% likelihood of success per calculator TOLAC consent form signed: [] Labor Preferences- CB/BF classes: no labor support person: Lance labor intervention preferences: Plans repeat c section : Yes PP control planned: considering bilateral salpingectomy with CS discussed possible routes of delivery and associated risks: [] special requests: [] Plans Covid status: [] Flu vaccine: [] Tdap vaccine: declines Rhogam: na LARC form signed: yes Problem list reviewed and updated with the most current plan of care details and appropriate orders placed. Relevant counseling for the gestational age provided. Continue routine care and follow up unless otherwise noted in visit notes/problem list details OB Flowsheet Initial Weight: Not Recorded Date -?-?-?-?-?-?-?-?-?-?-?-?- EGA Weight BP Urine Prot -?-?-?-?-?-?-?-?-?-?-?-?- Glucose FHR FuHt Pres Dilation -?-?-?-?-?-?-?-?-?-?-?-?- Effaced St Visit Note 07/02/22 -?-?-?-?-?-?-?-?-?-?-?-?- 9w 3d 230 lb 2 oz 124/81 -?-?-?-?-?-?-?-?-?-?-?-?- 180 -?-?-?-?-?-?-?-?-?-?-?-?- JV- single live IUP measuring 9weeks 6 days and consistent with LMP. declines NIPT. she is on insulin already for pregestational dm (although does not believe that is the JV- single live IUP measurin g 9weeks 6 days and consistent with LMP. declines NIPT. she is on insulin already for pregestational dm (although does not believe that is the the correct diagnosis) 08/02/22 -?-?-?-?-?-?-?-?-?-?-?-?- 13w 6d 227 lb 4 oz 129/78 Nega tive -?-?-?-?-?-?-?-?-?-?-?-?- Negative 150 -?-?-?-?-?-?-?-?-?-?-?-?- Sm- no vb lof cr amping 08/30/22 -?-?-?-?-?-?-?-?-?-?-?-?- 17w 6d 230 lb 135/82 Negative -?-?-?-?-?-?-?-?-?-?-?-?- Negative 155 -?-?-?-?-?-?-?-?-?-?-?-?- SM- no vb lof cr amping SM- no vb lof cramping, incr eased insulin. 09/29/22 -?-?-?-?-?-?-?-?-?-?-?-?- 22w 1d 233 lb 2 oz 122/79 Nega tive -?-?-?-?-?-?-?-?-?-?-?-?- Negative 155 22 -?-?-?-?-?-?-?-?-?-?-?-?- LC- no vb/crampi ng, increased insulin and 10u in AM added. fastings now 80-96. diet reviewed. 10/27/22 -?-?-?-?-?-?-?-?-?-?-?-?- 26w 1d 239 lb 4 oz 115/79 Nega tive -?-?-?-?-?-?-?-?-?-?-?-?- Negative 160 27 -?-?-?-?-?-?-?-?-?-?-?-?- KW- +FM. no vb/l of/ctx. Increase in insulin. Discussed labs and NSTs/Growth US 11/24/22 -?-?-?-?-?-?-?-?-?-?-?-?- 30w 1d 239 lb 8 oz 117/74 Nega tive -?-?-?-?-?-?-?-?-?-?-?-?- Negative 142 32 -?-?-?-?-?-?-?-?-?-?-?-?- LC- good fm. no lof/ctx/vb. fasting under 93, except for today at 103. contacting Dr. gooden. to start NST in at 32 weeks. 12/06/22 -?-?-?-?-?-?-?-?-?-?-?-?- 31w 6d 243 lb 4 oz 118/72 Nega tive -?-?-?-?-?-?-?-?-?-?-?-?- Negative 158 34 -?-?-?-?-?-?-?-?-?-?-?-?- MH-No VB, LOF. G ood FM. States glucose readings wnl, reports to Dr Gooden. Growth US w/MFM 12/16. Start NSTs this week NST FHR Rate Baby A Baseline: 130 Variability:: Moderate Accelerations:: 15 x 15 Decelerations:: None NST Reactive:: Yes FHR Category:: Category I Uterine Activity:: none Assessment & Plan (1) Modified White class B pregestational diabetes mellitus: COMMENT: baseline labs ordered. ekg/optho consult recommended. dr. gooden managing. NPH 52 at night, 14u in AM 09/29. nl echo twice weekly NST(doing evenings at [facility]) w growth US Q4w at 32 wk:12/16- PLAN: Plan Patient presents for triage evaluation secondary to scheduled NST for insulin controlled diabetes in FHT: Moderate variability reactive no decelerations category I tracing [place]: no Contractions Assessment and plan: Reactive NST, reassuring maternal and status patient discharged to home to follow-up in office . See problem list details for additional plan information. Charges/Coding Procedures Urinary/Genital 52xxx-59xxx: 33625-70 non-stress test Interp
== END 2022-12-13 20:00 | disposition home or self-care (01) ==
LOC: WPOUT 19:16 → WP 19:16
PROVIDERS: Visit Provider Registered Nurse
DX: O24.419 Gestational diabetes mellitus in pregnancy, unspecified control (principal); Z79.4 Long term (current) use of insulin; Z3A.33 33 weeks gestation of pregnancy
CPT/HCPCS: 59025; 59050

== ENCOUNTER 2022-12-28 20:00 | Outpatient (CLI) | payer OTHER, SELFPAY ==
[2022-12-28 20:17] VITALS: BMI 42.7
[2022-12-28 20:37] VITALS: BP 129/71; PULSE 87
--- NOTE | 2022-12-28 20:40 | OB.TRI.PN_ITS ---
Progress Notes Date of Service: 12/28/22 Progress Note: Patient presents for triage evaluation secondary to scheduled NST FHT: 135 Moderate variability reactive no decelerations category I tracing [place]: no Contractions Assessment and plan: Reactive NST, reassuring maternal and status patient discharged to home to follow-up as scheduled. See problem list details for additional plan information. Charges/Coding Multi Select Codes Urinary/Genital Urinary/Genital CPT Codes: 53918-59 non-stress test Interp Assessment & Plan (1) Acid reflux: (2) Modified White class B pregestational diabetes mellitus: COMMENT: baseline labs ordered. ekg/optho consult recommended. dr. de dios managing. NPH 52 at night, 14u in AM 09/29. nl echo twice weekly NST(doing evenings at [facility]) w growth US Q4w at 32 wk:12/16-70% (3) Desires (vaginal after ) trial: COMMENT: PLANS RPT C/S w/ JV. History of C/S with dehiscence. Had wound packing in office until healed. chance of successful only 46% and recommend repeat elective as will need delivery at 39 weeks RLTCS BS 01/26 JV @ 7:30 (4) Supervision of high risk , antepartum: COMMENT: PRR SUSAN 02/01/23 PC: Mary Ellen Spouse: Lance (5) : QUALIFIERS: Weeks of gestation: 34 weeks Qualified Code(s): Z3A.34 - 34 weeks gestation of COMMENT: NIPT declines , nl echo (6) ASCUS of cervix with negative high risk HPV: COMMENT: repeat pap 2023
== END 2022-12-28 20:45 | disposition home or self-care (01) ==
LOC: WPOUT 20:04 → WP 20:05
PROVIDERS: Referring Provider Advanced Practice Midwife; Visit Provider Advanced Practice Midwife
DX: O99.613 Diseases of the digestive system complicating pregnancy, third trimester (principal); O24.113 Pre-existing type 2 diabetes mellitus, in pregnancy, third trimester; K21.9 Gastro-esophageal reflux disease without esophagitis; Z3A.34 34 weeks gestation of pregnancy
CPT/HCPCS: 59025; 59050

== ENCOUNTER 2023-01-03 20:03 | Outpatient (CLI) | payer OTHER, SELFPAY ==
[2023-01-03 20:36] VITALS: PULSE 85; O2SAT 99
[2023-01-03 20:41] VITALS: PULSE 94; O2SAT 99
[2023-01-03 20:49] VITALS: BP 126/60; PULSE 82
--- NOTE | 2023-01-03 21:13 | OB.TRI.PN_ITS ---
Progress Notes Date of Service: 01/03/23 Progress Note: Patient presents for triage evaluation secondary to diabetes FHT: 130 Moderate variability reactive no decelerations category I tracing [place]: no regular Contractions Assessment and plan: diabetes Reactive NST, reassuring maternal and status patient discharged to home to follow-up as scheduled. See problem list details for additional plan information. Charges/Coding Procedures Urinary/Genital 52xxx-59xxx: 61566-52 non-stress test Interp
== END 2023-01-03 21:46 | disposition home or self-care (01) ==
LOC: WPOUT 20:10 → WP 20:11
PROVIDERS: Referring Provider Obstetrics & Gynecology; Visit Provider Obstetrics & Gynecology
DX: O24.919 Unspecified diabetes mellitus in pregnancy, unspecified trimester (principal); Z79.4 Long term (current) use of insulin; Z3A.00 Weeks of gestation of pregnancy not specified
CPT/HCPCS: 59025; 59050

== ENCOUNTER → 2023-01-05 | Outpatient (CLI) | payer OTHER, SELFPAY | END | disposition home or self-care (01) | LOC: LABSPEC 16:54 | PROVIDERS: Referring Provider Obstetrics & Gynecology; Visit Provider Obstetrics & Gynecology | DX: O09.90 Supervision of high risk pregnancy, unspecified, unspecified trimester (principal); Z3A.00 Weeks of gestation of pregnancy not specified | CPT/HCPCS: 87081 ==

== ENCOUNTER 2023-01-26 05:36 | Inpatient (IN) | payer OTHER, SELFPAY ==
--- NOTE | 2023-01-25 13:17 | HP.PCM_ITS ---
History and Physical Date of Admission: 01/26/23 Intake Vital Signs 11/24/2308:39 01/14/2315:48 01/22/2316:23 01/22/2316:24 Height 5 ft 7 in 5 ft 3 in 5 ft 3 in 5 ft 3 in Weight: 245 lb 2 oz BMI 43.4 BP 122/84 H Intake Visit Reasons: 38 WK OB Clerical Clerk Required: No Is patient in pain?: No Allergies shellfish derived Adverse Reaction (Severe, Verified 01/21/23 16:23) Swelling Medications prenat.vits,scott,pkb-xqkk-ivnpl 1 tab PO DAILY 06/23/22 [History Confirmed 01/21/23] Novolin N FlexPen 100 unit/mL (3 mL) subcutaneous insulin pen (insulin NPH isoph U-100 human) 35 unit (0.35 mL) subcut QAM #15 mL 06/29/22 [Rx Confirmed 01/21/23] OneTouch Verio test strips (blood sugar diagnostic) #150 ea 06/29/22 [Rx Confirmed 01/21/23] lancets 33 gauge (Contentment LtdTouch Delica Plus Lancet) #150 ea 06/29/22 [Rx Confirmed 01/21/23] pen needle, diabetic 32 gauge x 5/32 (BD Ultra-Fine Tabatha Pen Needle) #100 ea 06/29/22 [Rx Confirmed 01/21/23] Novolin N FlexPen 100 unit/mL (3 mL) subcutaneous insulin pen (insulin NPH isoph U-100 human) See Rx Instructions subcut QPM #18 mL 10/05/22 [Rx Confirmed 01/21/23] famotidine 20 mg tablet (Pepcid) 20 mg PO DAILY #30 tabs 10/27/22 [Rx Confirmed 01/21/23] blood-glucose sensor (Dexcom G7 Sensor device) #3 ea 11/25/22 [Rx Confirmed 01/21/23] Last Menstrual Period: 04/27/22 Zika: Zika virus screening: Negative : No PFSH PFSH Medical History Asthma Gestational diabetes Surgical History H/O knee surgery (~2007) H/O wisdom tooth extraction Hx of tonsillectomy Family History Mother Hypertension H/O HELLP syndromeGrandmother Kidney disease poly cystic kidney diseaseAunt Liver disease poly cystic liver diseaseGrandfather Diabetes Social History adopted: No household members: spouse and children housing: house number of children: 1 current occupational status: employed current occupation: [employer] current occupational exposures/hazards: No pets and animals: Yes pets and animals: dog(s) history of recent travel: No sexually active: Yes Smoking Status: Never smoker second hand exposure: No alcohol intake: current details: not while substance use type: does not use well-balanced diet: daily or most days caffeine: Yes Type: carbonated beverages Number of servings: 2 and coffee Number of servings: 1 seatbelt use: always do you feel safe at home: Yes additional social history: - Lance Villaseñor ([employer]) History 2 Elective abortions Hx Para 1 Spontaneous abortions Hx # Term Pregnancies 1 Ectopic pregnancies Hx # Pregnancies Multiple births # of living children 1 Past Pregnancies Del. Date Name GA/Weeks Outcome Route Bth Weight Gen Labor Lgth Anesthesia Del Locatn Provider FOB 12/07/20 Mary Ellen 39 live - full term 6lbs 2oz Female [facility] [place] Delivery Date: 12/07/20 Last Updated by: Francesca Boston [facility] HPI 38 WK OB Details: GUILLERMO VILLASEÑOR is a 27 year old who presents for routine OB visit. OB Visit SUSAN Calculator Estimated Delivery Date Method Current WG Current Estimate 02/01/23 LMP (Certain) 38w 3d Other Estimates 01/29/23 Ultrasound #1 38w 6d Expected Delivery Route/Plan RLTCS patient counseled regarding risks/benefits of trial of labor versus repeat . ACOG/uptodate education given to patient. 46% likelihood of success per calculator TOLAC consent form signed: [] Labor Preferences- CB/BF classes: no labor support person: Lance labor intervention preferences: Plans repeat c section : Yes PP control planned: considering bilateral salpingectomy with CS discussed possible routes of delivery and associated risks: [] special requests: [] Specific Issue/Plans Covid status: declined Flu vaccine: Tdap vaccine: declines Rhogam: na LARC form signed: yes movement and labor precautions reviewed. Problem list reviewed and updated with the most current plan of care details and appropriate orders placed. Relevant counseling for the gestational age provided. Continue routine care and follow up unless otherwise noted in visit notes/problem list details Initial Weight: Not Recorded Date -?-?-?-?-?-?-?-?-?-?-?-?- EGA Weight BP Urine Prot -?-?-?-?-?-?-?-?-?-?-?-?- Glucose FHR FuHt Pres Dilation -?-?-?-?-?-?-?-?-?-?-?-?- Effaced St Visit Note 07/02/22-?-?-?-?-?-?-?-?-?-?-?-?- 9w 3d 230 lb 2 oz 124/81 -?-?-?-?-?-?-?-?-?-?-?-?- 180 -?-?-?-?-?-?-?-?-?-?-?-?- JV- single live IUP measuring 9weeks 6 days and consistent with LMP. declines NIPT. she is on insulin already for pregestational dm (although does not believe that is the JV- single live IUP measuring 9weeks 6 days and consistent with LMP. declines NIPT. she is on insulin already for pregestational dm (although does not believe that is the the correct diagnosis) 08/02/22-?-?-?-?-?-?-?-?-?-?-?-?- 13w 6d 227 lb 4 oz 129/78 Negative -?-?-?-?-?-?-?-?-?-?-?-?- Negative 150 -?-?-?-?-?-?-?-?-?-?-?-?- Sm- no vb lof cramping 08/30/22-?-?-?-?-?-?-?-?-?-?-?-?- 17w 6d 230 lb 135/82 Negative -?-?-?-?-?-?-?-?-?-?-?-?- Negative 155 -?-?-?-?-?-?-?-?-?-?-?-?- SM- no vb lof cramping SM- no vb lof cramping, increased insulin. 09/29/22-?-?-?-?-?-?-?-?-?-?-?-?- 22w 1d 233 lb 2 oz 122/79 Negative -?-?-?-?-?-?-?-?-?-?-?-?- Negative 155 22 -?-?-?-?-?-?-?-?-?-?-?-?- LC- no vb/cramping, increased insulin and 10u in AM added. fastings now 80-96. diet reviewed. 10/27/22-?-?-?-?-?-?-?-?-?-?-?-?- 26w 1d 239 lb 4 oz 115/79 Negative -?-?-?-?-?-?-?-?-?-?-?-?- Negative 160 27 -?-?-?-?-?-?-?-?-?-?-?-?- KW- +FM. no vb/lof/ctx. Increase in insulin. Discussed labs and NSTs/Growth US 11/24/22-?-?-?-?--?-?-?-?-?-?-?-?- 30w 1d 239 lb 8 oz 117/74 Negative -?-?-?-?-?-?-?-?-?-?-?-?- Negative 142 32 -?-?-?-?-?-?-?-?-?-?-?-?- LC- good fm. no lof/ctx/vb. fasting under 93, except for today at 103. contacting Dr. gooden. to start NST in at 32 weeks. 12/06/22-?-?-?-?-?-?-?-?-?-?-?-?- 31w 6d 243 lb 4 oz 118/72 Negative -?-?-?-?-?-?-?-?-?-?-?-?- Negative 158 34 -?-?-?-?-?-?-?-?-?-?-?-?- MH-No VB, LOF. Good FM. States glucose readings wnl, reports to Dr Gooden. [facility] US w/MFM 12/16. Start NSTs this week 12/24/22-?-?-?-?-?-?-?-?-?-?-?-?- 34w 3d 241 lb 6 oz 113/75 Negative -?-?-?-?-?-?-?-?-?-?-?-?- Negative 135 -?-?-?-?-?-?-?-?-?-?-?-?- kw-no vb/lof/ctx. good fm. NST reactive. no concerns today. BS good kw-no vb/lof/ctx. good fm. NST reactive. no concerns today. BS good. LARC done 01/05/23-?-?-?-?-?-?-?-?-?-?-?-?- 36w 1d 246 lb 117/74 -?-?-?-?-?-?-?-?-?-?-?-?- 140 -?-?-?-?-?--?-?-?-?-?-?-?- JV- gbs today. reactive nst. no complaints. 01/14/23-?-?-?-?-?-?-?-?-?-?-?-?- 37w 3d 148 lb 2 oz 118/80 Negative -?-?-?-?-?-?-?-?-?-?-?-?- Negative 140 -?-?-?-?-?-?-?-?-?-?-?-?- SM- no vb cramping SM- no vb cramping nst done 01/21/23-?-?-?-?-?-?-?-?-?-?-?-?- 38w 3d 245 lb 2 oz 122/84 Negative -?-?-?-?-?-?-?-?-?-?-?-?- Negative 140 -?-?-?-?-?-?-?-?-?-?-?-?- SM- no vb lof good fm no regular ctx preo pdone ACOG First Trimester First Trimester: Desire for , Alcohol, Tobacco Cessation, Illicit/Recreational Drug/Substance Use, Intimate Partner Violence, Barriers to care, Unstable Housing, Communication Barriers, Environmental/Work Hazards, Anticipated Course of Care, Toxoplasmosis Precations, Use of Any medications, Sexual activity, Exercise, Dental Care, Sauna/Hot tub use, Seat Belt use, Childbirth classes/Hospital facilities, , Travel, Indications for Ultrasound and Screening for Aneuploidy Second Trimester Second Trimester: Signs and Symptoms of Labor, Selecting a care provider, Reproductive Life Planning & Contreception, Care Planning, Depression/Anxiety and Intimate Partner Violence; Discussed Tobacco Cessation Third Trimester Third Trimester: Pain Management Plans, Labor support person(s), Immediate Larc, Circumcision preference, Signs and Symptoms of Preeclampsia, Infant Feeding Yes , Family Medical Leave or Disability Forms and Intimate Partner Violence; Discussed Depression Diagnostics Diagnostics Diagnostics: HIV 1&2 Antibody Non-Reactive (Nonreactive) Hgb 12.3 g/dL (12.0-15.0) Hct 38.0 % (37-47) Details: HIV: Urine Culture: Sequential Screen: NIPT Screen: ROS Const Reports system reviewed and no additional complaints, except as documented Card Reports system reviewed and no additional complaints, except as documented Resp Reports system reviewed and no additional complaints, except as documented GI Reports system reviewed and no additional complaints, except as documented and Reports nausea Reports system reviewed and no additional complaints, except as documented Musc Reports system reviewed and no additional complaints, except as documented Exam Const General: cooperative, healthy appearing, comfortable and anxious [facility] Head: normal to inspection Nose: external nose normal Face and sinus: normal facial exam Neck Neck: normal visual inspection, full ROM and no lymphadenopathy Thyroid: thyroid normal Chest Chest palpation & inspection: normal inspection of the chest Resp Effort & Inspection: normal respiratory effort GI Inspection: normal to inspection Palpation: soft and other (gravid uterus) Other: vertex and appropriate size for gestational age Other: Cervical Exam: Extrem General: pedal edema Results POC Urinalysis 2 Dip (Clinic) Office Urine Glucose Negative Last Edit by Hayley Toney on 01/21/23 16:26 Office Urine Protein Negative Last Edit by Hayley Toney on 01/21/23 16:26 Coding Level of Care Code OB Routine Diagnoses History of section Z98.891 Acid reflux K21.9 Modified White class B pregestational diabetes mellitus O24.319 Supervision of high risk , antepartum O09.90 38 weeks gestation of Z3A.38 Weeks of gestation: 38 weeks ASCUS of cervix with negative high risk HPV R87.610 Assessment and Plan Assessment and Plan (1) History of section: Status: Acute Comment: plan silver mepilex. PLANS RPT C/S w/ JV. History of C/S with dehiscence. Had wound packing in office until healed. chance of successful only 46% and recommend repeat elective as will need delivery at 39 weeks RLTCS BS 01/26 JV @ 7:30 (2) Acid reflux: Status: Acute (3) Modified White class B pregestational diabetes mellitus: Status: Acute Comment: baseline labs ordered. ekg/optho consult recommended. dr. gooden managing. NPH 52 at night, 14u in AM 09/29. nl echo twice weekly NST(doing evenings at [facility]) w growth US Q4w at 32 wk:12/16-70%, 37 weeks 54% (4) Supervision of high risk , antepartum: Status: Acute Comment: PRR SUSAN 02/01/23 PC: Mary Ellen Spouse: Lance Negative GBS (5) : Status: Acute Qualifiers: Weeks of gestation: 38 weeks Qualified Code(s): Z3A.38 - 38 weeks gestation of Comment: NIPT declines , nl echo (6) ASCUS of cervix with negative high risk HPV: Status: Chronic Comment: repeat pap 2023 Orders: Orders POC Urinalysis 2 Dip (Clinic) Today After discussing the patient's diagnosis and treatment plan options, patient wishes to proceed with surgical management. I have discussed with the patient the risks, benefits, and alternatives of the procedure which include but are not limited to risks of anesthesia, bleeding, infection, possible damage to bowel, bladder, or surrounding vasculature which could lead to additional surgery to evaluate any complications. Patient agrees to procedure and wishes to proceed. ACOG/uptodate references given for additional information regarding procedure.
[2023-01-26] VITALS (18 sets, daily range): BP systolic 63–149; BP diastolic 21–84; PULSE 78–214; RESP 16–18; TEMP 36.1–36.8; O2SAT 97–100; BMI 43.9
[2023-01-26] MEDS: Lactated Ringers 1,000 ML 999 ML IV ×2 (06:20→10:18)
[2023-01-26] MEDS: Sodium Citrate/Citric Acid 30 ML UDC PO (06:28)
[2023-01-26] MEDS: Acetaminophen 500 MG Tablet 1000 MG PO ×3 (06:28→19:25)
[2023-01-26 06:29] LABS: Absolute Lymphocyte Count 2.52 X10^3/uL (0.83-4.51); Absolute Neutrophil Count 8.2 X10^3/uL (2.0-7.7); Basophil# 0.04 X10^3/uL; Basophil% 0.3 % (0-1); Eosinophil# 0.16 X10^3/uL; Eosinophils% 1.3 % (0-5); Hematocrit 40.2 % (37-47); Lymphocyte # 2.52 X10^3/ul (0.83-4.51); Lymphocyte % 21.2 % (19-41); Mean Corp Hgb Conc 32.3 g/dL (32-36); Mean Corpuscular Hgb 30.7 pg (27.0-32.0); Mean Corpuscular Volume 94.8 fL (81-99); Mean Platelet Vol. 9.8 fl (6.2-12.0); Monocyte% 7.6 % (0-10); NRBC Flagged by Analyzer 0 % (0-5); Neutrophil # 8.17 X10^3/uL (2.7-7.7); Platelet Count 248 K/mm3 (150-450); RBC Distribution Width CV 12.2 % (11.6-14.6); Red Blood Count 4.24 M/mm3 (4.2-5.4); White Blood Count 11.9 K/mm3 (4.4-11.0)
[2023-01-26] MEDS: Lactated Ringers 1,000 ML 150 ML IV (07:24)
--- NOTE | 2023-01-26 07:33 | DCINST_ITS ---
Discharge Instructions Diet Discharge Diet: No restrictions Activity Discharge Activity: May Not Drive (for 2 weeks or while taking narcotic pain medications.), May Shower and May Take a Tub Bath (in 7 days.) May resume sexual activity in: 4-6 weeks Weight Bearing Status: Full weight bearing Lifting Restrictions: 20 pounds Dressing / Incision Call your doctor if your incision/area has: Continuous Slow Oozing, Sudden Increased Bleeding, Increased Pain/ Swelling, Increased Redness and Foul Smelling Discharge Call your doctor if you observe: Fever of 101 or Higher and Using more than 1 pad per hour Suture Line Care: Avoid Pulling/Pushing and Avoid Pinching/Bending Cleanse incision/area with: Soap & Water and Keep Dressing Clean & Dry Follow Up Care Please Follow Up With: Marisela Chandler DO When: Call [phone] to make an appointment for an incision check in 1-2 weeks. Test Results: Test results from this visit will be discussed in further detail at your follow- up appointment, if applicable. Discharge Plan Admission Admit Date/Time: 01/26/23 05:36 Primary Reason for Your Visit: Attending Provider: Marisela Chandler Primary Care Provider: Care PhysicianHeidi Primary Discharge Orders/Prescriptions Prescriptions: New naproxen 500 mg tablet 500 mg PO BID PRN (Reason: pain) Qty: 30 0RF Continued prenat.vits,scott,[id number]-klked Tablet 1 tab PO DAILY famotidine [Pepcid] 20 mg tablet 20 mg PO DAILY Qty: 30 3RF Discontinued Novolin N FlexPen 100 unit/mL (3 mL) insulin pen 16 unit subcut QAM Novolin N FlexPen 100 unit/mL (3 mL) insulin pen See Rx Instructions subcut QPM Qty: 18 3RF Patient Comments: taking 16 units q AM and 56 units q HS Rx Instructions: 10 units am and 50 units hs subcutaneously every evening; No Action (DME) pen needle, diabetic [BD Ultra-Fine Tabatha Pen Needle] 32 gauge x 5/32 needle See Rx Instructions .ROUTE .MEDSUPPLY Qty: 100 1RF Rx Instructions: As directed (DME) OneTouch Verio test strips Strip See Rx Instructions .Route Qty: 150 8RF Rx Instructions: 4 times daily (DME) lancets [OneTouch Delica Plus Lancet] 33 gauge misc See Rx Instructions .Route Qty: 150 0RF Rx Instructions: As directed (DME) Dexcom G7 Sensor Device See Rx Instructions .Route Qty: 3 5RF Rx Instructions: As directed Referrals / Follow Up: Care Physician,No Primary [Primary Care Provider] - Disposition Disposition (needs filled in before D/C Order can be placed): Home, Self Care
[2023-01-26] MEDS: Cefazolin 2 GM in 0.9% Normal Saline (100mL Bag) 100 ML IV (08:00)
[2023-01-26 08:37] LABS: Syphilis Antibodies Non-reactive
--- NOTE | 2023-01-26 09:33 | EX.PCM.OBRPT ---
Assessment & Plan (1) History of section: COMMENT: plan silver mepilex. PLANS RPT C/S w/ JV. History of C/S with dehiscence. Had wound packing in office until healed. chance of successful only 46% and recommend repeat elective as will need delivery at 39 weeks RLTCS BS 01/26 JV @ 7:30 (2) Acid reflux: (3) Modified White class B pregestational diabetes mellitus: COMMENT: baseline labs ordered. ekg/optho consult recommended. dr. de dios managing. NPH 52 at night, 14u in AM 09/29. nl echo twice weekly NST(doing evenings at [facility]) w growth US Q4w at 32 wk:12/16-70%, 37 weeks 54% (4) Supervision of high risk , antepartum: COMMENT: PRR SUSAN 02/01/23 PC: Mary Ellen Spouse: Lance Negative GBS (5) : QUALIFIERS: Weeks of gestation: 38 weeks Qualified Code(s): Z3A.38 - 38 weeks gestation of COMMENT: NIPT declines , nl echo (6) ASCUS of cervix with negative high risk HPV: COMMENT: repeat pap 2023 Maternal Data Information SUSAN Calculator Estimated Delivery Date Method Current WG Current Estimate 02/01/23 LMP (Certain) 39w 1d Other Estimates 01/29/23 Ultrasound #1 39w 4d Final SUSAN Source: LMP Gestational age: 39 weeks 1 day Details Operative Information Date of Procedure: 01/26/23 Pre-Operative Diagnosis: 27 y/o @ 39 weeks 1 day, pre-existing type 2 insulin dependent diabetes in Post-Operative Diagnosis: 27 y/o @ 39 weeks 1 day, pre-existing type 2 insulin dependent diabetes in Classification: Scheduled Procedure Type: low transverse chemical preparer #1: Della Shook Type of Anesthesia: Spinal Antibiotic Given: Ancef 2 grams IV x1 Drain: Rodgers to straight drain Estimated Blood Loss: 700cc Findings Description of Procedure: The patient is a 27 y/o @ 39 weeks who presented for repeat . Spinal anesthesia was placed without difficulty. Rodgers catheter was placed. The patient was placed in the dorsal supine position with leftward tilt. Patient was prepped and draped in the normal sterile fashion. Pfannenstiel skin incision was made with the scalpel and carried through to the underlying layer of fascia with the scalpel. Fascia was nicked in the midline and the incision extended laterally. The rectus bellies were dissected off superiorly and inferiorly with out complication both sharply and bluntly. The peritoneum was entered digitally. The incision was stretched and a low transverse uterine incision was made with the scalpel. The 's head was delivered atraumatically followed by the anterior and posterior shoulders without complication the rest of the delivered. The cord was clamped and cut and the infant was handed off to awaiting nurse. The placenta was delivered spontaneously immediately following and was noted to be intact and have a three-vessel cord. The uterus was exteriorized cleared of all clots and debris, and the incision was closed in a double layer closure using #1 Vicryl sutures and #1 monocryl sutures. Thre was oozing from the left side of the incision and several #1 vicryl suture was used to create hemostasis via eventual uterine artery ligation. The ovaries and fallopian tubes were noted to be within normal limits. The uterus was returned to the maternal abdomen and gutters were cleared of all clots and debris. The peritoneum was closed with 3-0 Monocryl in a running fashion. Gloves were changed prior to fascial closure. Fascia was closed with 0 PDS in a running fashion. Subcutaneous tissue was copiously irrigated and the skin was closed with 3-0 Monocryl in a subcuticular fashion. Mepilex dressing was applied without complication. Patient was taken to recovery in stable condition. It was discussed with the patient that based on the clinical information obtained during this encounter, combined with her history, at this time I would recommend for future deliveries if further pregnancies are desired. Presentation: Positive for Vertex Amniotic Membrane Rupture Type: Artificial Amniotic Fluid Description: Clear Placental Delivery Description: Manual Removal Placenta Disposition: [facility] Cord Vessel Description: 3 Vessels Cord Entanglement: None Infant A Gender: Male (1 minute): 9 (5 minute): 10 Delayed Cord Clamping: Yes Complications Risks of Surgery Discussed w/Patient: Bleeding, Anesthesia Risks, Infection, Need for Future C-Sections and Injury to surrounding structure(s) including bowel and bladder Complications: none Multi Select Codes Urinary/Genital Urinary/Genital CPT Codes: 24167 Delivery [facility]
[2023-01-26] MEDS: Oxytocin 15 Units/NS 250ml 15 UNITS/250 ML IV.SOLN 83 UNITS IV (09:42)
[2023-01-26] MEDS: 0.9% Saline Lock 10 ML Syringe IV ×4 (10:00→23:01)
[2023-01-26] MEDS: Ketorolac 30 MG/ML Syringe IV ×3 (10:00→23:00)
[2023-01-26 10:13] LABS: Bedside Glucose 85 mg/dL (74-106)
[2023-01-26 10:23] LABS: Bedside Glucose 60 mg/dL (74-106)
--- NOTE | 2023-01-26 10:38 | NURSING ---
Patient fully awake, alert and oriented, very shaky, difficult to obtain BP.
[2023-01-26 11:54] LABS: Bedside Glucose 53 mg/dL (74-106)
[2023-01-26 11:54] LABS: Bedside Glucose 70 mg/dL (74-106)
[2023-01-26] MEDS: SimETHICONE 80 MG Chewable Tablet PO ×2 (13:22→19:31)
[2023-01-26] MEDS: Senna/Docusate Sodium 1 Tablet PO (13:22)
[2023-01-26] MEDS: HYDROmorphone 1 MG/ML Syringe IV (15:41)
--- NOTE | 2023-01-26 16:00 | NURSING ---
first ambulation discussed with patient at this time. patient feels as though legs are still slightly numb and unable to lift them off bed fully at this time. Will reassess between [id number] for ambulation. Patient agreeable.
[2023-01-26 16:48] LABS: Bedside Glucose 91 mg/dL (74-106)
[2023-01-26] MEDS: oxyCODONE 5 MG Tablet PO ×2 (19:31→20:31)
[2023-01-26] MEDS: Enoxaparin 40 MG/0.4 ML Syringe SC (20:55)
[2023-01-26 21:49] LABS: Bedside Glucose 118 mg/dL (74-106)
[2023-01-27] MEDS: Acetaminophen 500 MG Tablet 1000 MG PO ×4 (00:52→20:37)
[2023-01-27] MEDS: oxyCODONE 5 MG Tablet PO ×4 (00:53→20:37)
[2023-01-27] MEDS: Ketorolac 30 MG/ML Syringe IV (04:28)
[2023-01-27] MEDS: 0.9% Saline Lock 10 ML Syringe IV ×2 (04:30→12:19)
[2023-01-27 04:40] VITALS: BP 130/69; PULSE 111; RESP 18; TEMP 36.6; O2SAT 96
[2023-01-27] MEDS: SimETHICONE 80 MG Chewable Tablet PO ×4 (04:51→22:44)
[2023-01-27 06:37] LABS: Bedside Glucose 128 mg/dL (74-106)
[2023-01-27 07:10] LABS: Hematocrit 28.7 % (37-47); Hemoglobin 9.1 g/dL (12.0-15.0); Mean Corp Hgb Conc 31.7 g/dL (32-36); Mean Corpuscular Hgb 30.4 pg (27.0-32.0); Mean Platelet Vol. 9.9 fl (6.2-12.0); Platelet Count 196 K/mm3 (150-450); RBC Distribution Width CV 12.5 % (11.6-14.6); RBC Distribution Width SD 43.6 fl (35.1-43.9); Red Blood Count 2.99 M/mm3 (4.2-5.4); White Blood Count 12.2 K/mm3 (4.4-11.0)
[2023-01-27 07:30] LABS: ALB/GLOB Ratio 0.6 RATIO (0.9-2.4); AST(SGOT) 16 U/L (15-37); Alanine Aminotransfer ALT/SGPT 12 U/L (13-56); Albumin, Serum 1.9 g/dL (3.2-5.0); Alkaline Phosphatase 114 U/L (45-117); Anion Gap 7 (5-15); BUN 7 mg/dL (7-18); BUN/Creat Ratio 11.6 RATIO (10-20); Calcium,Total 7.9 mg/dL (8.5-10.1); Chloride 111 mmol/L (98-107); EST Glomerular Filtration Rate 125 mL/min (>60); Est Glom Filt Rate - Afr Amer 151 mL/min (>60); Estimated Creatinine Clearance 114.44 ml/min; Globulin 3.1 g/dL (2.2-4.2); Glucose 127 mg/dL (74-106); Sodium Level 137 mmol/L (136-145)
[2023-01-27] MEDS: Insulin NPH Human 100 UNITS/ML PEN 8 UNITS SC (08:05)
[2023-01-27 09:32] VITALS: BP 122/65; PULSE 110; RESP 18; TEMP 36.7; O2SAT 98
[2023-01-27 10:05] LABS: Absolute Lymphocyte Count 2.01 X10^3/uL (0.83-4.51); Basophil# 0.04 X10^3/uL; Basophil% 0.3 % (0-1); Eosinophil# 0.12 X10^3/uL; Hemoglobin 9.9 g/dL (12.0-15.0); Lymphocyte # 2.01 X10^3/ul (0.83-4.51); Lymphocyte % 16.8 % (19-41); Mean Corp Hgb Conc 31.9 g/dL (32-36); Mean Corpuscular Hgb 30.7 pg (27.0-32.0); Mean Corpuscular Volume 96.3 fL (81-99); Mean Platelet Vol. 9.7 fl (6.2-12.0); Monocyte# 0.76 X10^3/uL; Monocyte% 6.4 % (0-10); NRBC Flagged by Analyzer 0 % (0-5); Neutrophil # 8.99 X10^3/uL (2.7-7.7); Neutrophil % 75.2 % (47-70); Platelet Count 207 K/mm3 (150-450); RBC Distribution Width CV 12.6 % (11.6-14.6); Red Blood Count 3.22 M/mm3 (4.2-5.4)
[2023-01-27] MEDS: Enoxaparin 40 MG/0.4 ML Syringe SC (10:29)
[2023-01-27] MEDS: Lactated Ringers 1,000 ML 999 ML IV (10:29)
[2023-01-27] MEDS: Senna/Docusate Sodium 1 Tablet PO (10:29)
[2023-01-27 10:54] LABS: Bedside Glucose 151 mg/dL (74-106)
[2023-01-27 14:00] VITALS: BP 124/68; PULSE 107; RESP 16; TEMP 36.1
[2023-01-27] MEDS: Naproxen 500 MG Tablet PO ×2 (14:35→22:35)
[2023-01-27 15:01] LABS: Bedside Glucose 113 mg/dL (74-106)
[2023-01-27 19:55] VITALS: BP 119/70; PULSE 103; RESP 16; TEMP 36.3; O2SAT 98
--- NOTE | 2023-01-27 20:13 | PCM.PN.OB ---
Subjective Subjective late entry- patient seen at 9 am. low level tachycardia- repeat Hg stable Patient doing well without complaints. Tolerating PO. Ambulating and voiding without difficulty. infant feeding well. Denies chest pain, shortness of breath, calf pain/swelling, fevers, chills, lightheadedness. Objective Data Objective Data Vital Signs: Vital Signs Temp Pulse Resp BP Pulse Ox O2 Del Method 97.4 F L 103 H 16 119/70 98 Room Air 01/27/23 19:55 01/27/23 19:55 01/27/23 19:55 01/27/23 19:55 01/27/23 19:55 01/27/23 19:55 Oxygen Delivery Method Room Air Weight: 248 lb 3.848 oz Body Mass Index (BMI) 43.9 Intake & Output: Intake and Output for Last 24 Hours 01/25/23 01/26/23 01/27/23 23:59 23:59 23:59 Intake Total 2370 / 2370 1000 / 1000 Output Total 2200 / 2200 900 / 900 Balance 170 / 170 100 / 100 Lab / Micro Data 01/27/23 09:53 01/27/23 06:50 Labs: Laboratory Results - last 24 hr 01/26/23 21:29: POC Glucose 118 H 01/27/23 06:07: POC Glucose 128 H 01/27/23 06:50: WBC 12.2 H, RBC 2.99 L, Hgb 9.1 L, Hct 28.7 L, MCV 96.0, MCH 30.4, MCHC 31.7 L, RDW Std Deviation 43.6, RDW Coeff of Liliana 12.5, Plt Count 196, MPV 9.9, Sodium 137, Potassium 4.0, Chloride 111 H, Carbon Dioxide 19.0 L, Anion Gap 7, BUN 7, Creatinine 0.60, Estim Creat Clear Calc 114.44, Est GFR (MDRD) Af Amer 151, Est GFR (MDRD) Non-Af 125, BUN/Creatinine Ratio 11.6, Glucose 127 H, Calcium 7.9 L, Total Bilirubin 0.40, AST 16, ALT 12 L, Alkaline Phosphatase 114, Total Protein 5.0 L, Albumin 1.9 L, Globulin 3.1, Albumin/Globulin Ratio 0.6 L 01/27/23 09:53: WBC 12.0 H, RBC 3.22 L, Hgb 9.9 L, Hct 31.0 L, MCV 96.3, MCH 30.7, MCHC 31.9 L, RDW Std Deviation 44.0 H, RDW Coeff of Liliana 12.6, Plt Count 207, MPV 9.7, Immature Gran % (Auto) 0.300, Neut % (Auto) 75.2 H, Lymph % (Auto) 16.8 L, [place] % (Auto) 6.4, Eos % (Auto) 1.0, Baso % (Auto) 0.3, Absolute Neuts (auto) 9.0 H, Absolute Lymphs (auto) 2.01, Nucleated RBC % 0 01/27/23 10:35: POC Glucose 151 H 01/27/23 14:40: POC Glucose 113 H ROS Constitutional Constitutional: Reports systems reviewed and no addt'l complaints, except as documented Cardiovascular Cardiovascular: Reports systems reviewed and no addt'l complaints, except as documented Respiratory/Chest Respiratory/Chest: Reports systems reviewed and no addt'l complaints, except as documented Gastrointestinal Gastrointestinal: Reports systems reviewed and no addt'l complaints, except as documented Physical Exam Const alert, oriented x3 and no apparent distress HEENT Head and Scalp: atraumatic Resp normal respiratory effort GI soft to palpation and non-tender Inspection: incision intact, healing well and drainage (none) Bimanual Exam - Vag & Uterus: uterus non-tender Uterus Palpation: uterus fundus firm (below Umbilicus) Assessment & Plan (1) Status post delivery: (2) Modified White class B pregestational diabetes mellitus: COMMENT: ordered SSI, will continue to monitor sugars, consider metformin as OP (3) ASCUS of cervix with negative high risk HPV: COMMENT: repeat pap 2023 (4) Acute postoperative anemia due to greater than expected blood loss: PLAN: Plan s/p LTCS PPD # 1 1. routine post care 2. breast feeding- support given 3. rh positive 4. rubella immune
[2023-01-27 20:20] LABS: Bedside Glucose 123 mg/dL (74-106)
[2023-01-28 02:36] VITALS: BP 122/71; PULSE 109; RESP 18; TEMP 36.4
[2023-01-28] MEDS: Acetaminophen 500 MG Tablet 1000 MG PO ×4 (02:37→20:32)
[2023-01-28] MEDS: 0.9% Saline Lock 10 ML Syringe IV ×2 (02:38→16:24)
[2023-01-28] MEDS: Naproxen 500 MG Tablet PO ×3 (06:31→22:15)
[2023-01-28 06:59] LABS: Bedside Glucose 96 mg/dL (74-106)
--- NOTE | 2023-01-28 07:29 | PCM.PN.OB ---
Subjective Subjective Patient doing well without complaints. Tolerating PO. Ambulating and voiding without difficulty. Feeding well. Denies chest pain, shortness of breath, calf pain/swelling, fevers, chills, lightheadedness. Objective Data Objective Data Vital Signs: Vital Signs Temp Pulse Resp BP Pulse Ox O2 Del Method 97.6 F L 109 H 18 122/71 H 98 Room Air 01/28/23 02:36 01/28/23 02:36 01/28/23 02:36 01/28/23 02:36 01/27/23 19:55 01/27/23 19:55 Oxygen Delivery Method Room Air Weight: 248 lb 3.848 oz Body Mass Index (BMI) 43.9 Intake & Output: Intake and Output for Last 24 Hours 01/26/23 01/27/23 01/28/23 23:59 23:59 23:59 Intake Total 2370 / 2370 1000 / 1000 Output Total 2200 / 2200 900 / 900 Balance 170 / 170 100 / 100 Lab / Micro Data Attestation: I reviewed the patient's lab results. 01/27/23 09:53 01/27/23 06:50 Labs: Laboratory Results - last 24 hr 01/27/23 06:50: Sodium 137, Potassium 4.0, Chloride 111 H, Carbon Dioxide 19.0 L, Anion Gap 7, BUN 7, Creatinine 0.60, Estim Creat Clear Calc 114.44, Est GFR (MDRD) Af Amer 151, Est GFR (MDRD) Non-Af 125, BUN/Creatinine Ratio 11.6, Glucose 127 H, Calcium 7.9 L, Total Bilirubin 0.40, AST 16, ALT 12 L, Alkaline Phosphatase 114, Total Protein 5.0 L, Albumin 1.9 L, Globulin 3.1, Albumin/Globulin Ratio 0.6 L 01/27/23 09:53: WBC 12.0 H, RBC 3.22 L, Hgb 9.9 L, Hct 31.0 L, MCV 96.3, MCH 30.7, MCHC 31.9 L, RDW Std Deviation 44.0 H, RDW Coeff of Liliana 12.6, Plt Count 207, MPV 9.7, Immature Gran % (Auto) 0.300, Neut % (Auto) 75.2 H, Lymph % (Auto) 16.8 L, [place] % (Auto) 6.4, Eos % (Auto) 1.0, Baso % (Auto) 0.3, Absolute Neuts (auto) 9.0 H, Absolute Lymphs (auto) 2.01, Nucleated RBC % 0 01/27/23 10:35: POC Glucose 151 H 01/27/23 14:40: POC Glucose 113 H 01/27/23 19:54: POC Glucose 123 H 01/28/23 06:33: POC Glucose 96 ROS Constitutional Constitutional: Reports systems reviewed and no addt'l complaints, except as documented; Denies anorexia or headache(s) Cardiovascular Cardiovascular: Reports systems reviewed and no addt'l complaints, except as documented; Denies dizziness, dyspnea, nausea or tachypnea Respiratory/Chest Respiratory/Chest: Reports systems reviewed and no addt'l complaints, except as documented; Denies cough, dyspnea, shortness of breath at rest or tachypnea Gastrointestinal Gastrointestinal: Reports systems reviewed and no addt'l complaints, except as documented; Denies abdominal pain, constipation or nausea Genitourinary Genitourinary: Reports systems reviewed and no addt'l complaints, except as documented; Denies burning urination, difficulty urinating, dysuria, urinary frequency or urinary incontinence Musculoskeletal Musculoskeletal: Reports systems reviewed and no addt'l complaints, except as documented Integumentary Integumentary: Reports systems reviewed and no addt'l complaints, except as documented Neurologic Neurologic: Reports systems reviewed and no addt'l complaints, except as documented; Denies abnormal speech, dizziness or headache(s) Psychiatric Psychiatric: Reports systems reviewed and no addt'l complaints, except as documented Endocrine Endocrinology: Reports systems reviewed and no addt'l complaints, except as documented Hematologic/Lymphatic Hematologic/Lymphatic: Reports systems reviewed and no addt'l complaints, except as documented Physical Exam Const alert, oriented x3 and no apparent distress Neck full ROM Resp normal respiratory effort, normal air movement and no retractions Effort and Inspection: able to speak in complete sentences and symmetric chest movement GI soft to palpation Bladder / Kidney Exam: bladder normal to palpation Uterus Palpation: uterus fundus firm Extremity normal to inspection and full ROM Psych mental status grossly normal, thought process normal and cooperative Assessment & Plan (1) Acute postoperative anemia due to greater than expected blood loss: (2) Status post delivery: PLAN: s/p LTCS PPD # 2 1. routine post care 2. breast feeding- support given 3. rh positive 4. rubella immune 5. Plan D/C for tomorrow 6. Plan to RTO in 1 week for dressing removal per her request (3) Modified White class B pregestational diabetes mellitus: COMMENT: ordered SSI, will continue to monitor sugars, consider metformin as OP (4) ASCUS of cervix with negative high risk HPV: COMMENT: repeat pap 2023 Charges/Coding Multi Select Codes Urinary/Genital Urinary/Genital CPT Codes: No Charge
[2023-01-28] MEDS: oxyCODONE 5 MG Tablet PO ×3 (08:06→17:58)
[2023-01-28 08:08] VITALS: BP 113/73; PULSE 95; RESP 16; TEMP 36.6; O2SAT 98
[2023-01-28 08:40] LABS: Bedside Glucose 90 mg/dL (74-106)
[2023-01-28] MEDS: metFORMIN (XR) 500 MG Tablet PO (09:16)
[2023-01-28] MEDS: Senna/Docusate Sodium 1 Tablet PO (09:16)
[2023-01-28] MEDS: SimETHICONE 80 MG Chewable Tablet PO (09:17)
[2023-01-28] MEDS: Enoxaparin 40 MG/0.4 ML Syringe SC (09:19)
[2023-01-28 11:41] LABS: Bedside Glucose 122 mg/dL (74-106)
[2023-01-28 13:53] VITALS: BP 110/66; PULSE 110; RESP 16; TEMP 36.4; O2SAT 98
[2023-01-28 15:51] LABS: Bedside Glucose 96 mg/dL (74-106)
[2023-01-28 21:00] VITALS: BP 133/77; PULSE 110; RESP 16; TEMP 36.6; O2SAT 98
[2023-01-28 22:43] LABS: Bedside Glucose 110 mg/dL (74-106)
[2023-01-29 02:00] VITALS: BP 95/54; PULSE 106; RESP 15; TEMP 36.4; O2SAT 97
[2023-01-29] MEDS: Acetaminophen 500 MG Tablet 1000 MG PO ×2 (02:40→08:54)
--- NOTE | 2023-01-29 04:35 | PCM.PN.OB ---
Subjective Subjective Patient doing well without complaints. Tolerating PO. Ambulating and voiding without difficulty. Feeding well. Denies chest pain, shortness of breath, calf pain/swelling, fevers, chills, lightheadedness. Objective Data Objective Data Vital Signs: Vital Signs Temp Pulse Resp BP Pulse Ox O2 Del Method 97.6 F L 106 H 15 95/54 L 97 Room Air 01/29/23 02:00 01/29/23 02:00 01/29/23 02:00 01/29/23 02:00 01/29/23 02:00 01/29/23 02:00 Oxygen Delivery Method Room Air Weight: 248 lb 3.848 oz Body Mass Index (BMI) 43.9 Intake & Output: Intake and Output for Last 24 Hours 01/27/23 01/28/23 01/29/23 23:59 23:59 23:59 Intake Total 1000 / 1000 Output Total 900 / 900 Balance 100 / 100 Lab / Micro Data Attestation: I reviewed the patient's lab results. 01/27/23 09:53 01/27/23 06:50 Labs: Laboratory Results - last 24 hr 01/28/23 06:33: POC Glucose 96 01/28/23 08:14: POC Glucose 90 01/28/23 11:17: POC Glucose 122 H 01/28/23 15:30: POC Glucose 96 01/28/23 22:17: POC Glucose 110 H ROS Constitutional Constitutional: Reports systems reviewed and no addt'l complaints, except as documented; Denies anorexia or headache(s) Cardiovascular Cardiovascular: Reports systems reviewed and no addt'l complaints, except as documented; Denies dizziness, dyspnea, nausea or tachypnea Respiratory/Chest Respiratory/Chest: Reports systems reviewed and no addt'l complaints, except as documented; Denies cough, dyspnea, shortness of breath at rest or tachypnea Gastrointestinal Gastrointestinal: Reports systems reviewed and no addt'l complaints, except as documented; Denies abdominal pain, constipation or nausea Genitourinary Genitourinary: Reports systems reviewed and no addt'l complaints, except as documented; Denies burning urination, difficulty urinating, dysuria, urinary frequency or urinary incontinence Musculoskeletal Musculoskeletal: Reports systems reviewed and no addt'l complaints, except as documented Integumentary Integumentary: Reports systems reviewed and no addt'l complaints, except as documented Neurologic Neurologic: Reports systems reviewed and no addt'l complaints, except as documented; Denies abnormal speech, dizziness or headache(s) Psychiatric Psychiatric: Reports systems reviewed and no addt'l complaints, except as documented Endocrine Endocrinology: Reports systems reviewed and no addt'l complaints, except as documented Hematologic/Lymphatic Hematologic/Lymphatic: Reports systems reviewed and no addt'l complaints, except as documented Physical Exam Const alert, oriented x3 and no apparent distress Neck full ROM Resp normal respiratory effort, normal air movement and no retractions Effort and Inspection: able to speak in complete sentences and symmetric chest movement GI soft to palpation Inspection: incision intact (dressing changed after getting out of shower on 01/28) and healing well Bladder / Kidney Exam: bladder normal to palpation Uterus Palpation: uterus fundus firm Extremity normal to inspection and full ROM Psych mental status grossly normal, thought process normal and cooperative Assessment & Plan (1) Acute postoperative anemia due to greater than expected blood loss: (2) Status post delivery: PLAN: s/p LTCS PPD # 3 1. routine post care 2. breast feeding- support given 3. rh positive 4. rubella immune 5. Discharge home (3) Modified White class B pregestational diabetes mellitus: COMMENT: ordered SSI, will continue to monitor sugars, consider metformin as OP PLAN: metformin ordered. continue to monitor BS Follow up with endocrine (4) ASCUS of cervix with negative high risk HPV: COMMENT: repeat pap 2023 Charges/Coding Multi Select Codes Urinary/Genital Urinary/Genital CPT Codes: No Charge
[2023-01-29 05:56] LABS: Bedside Glucose 101 mg/dL (74-106)
[2023-01-29] MEDS: Naproxen 500 MG Tablet PO (06:15)
[2023-01-29 08:43] VITALS: BP 119/64; PULSE 98; RESP 16; TEMP 36.8; O2SAT 100
[2023-01-29] MEDS: metFORMIN (XR) 500 MG Tablet PO (08:54)
[2023-01-29] MEDS: Enoxaparin 40 MG/0.4 ML Syringe SC (10:17)
[2023-01-29] MEDS: Senna/Docusate Sodium 1 Tablet PO (10:18)
[2023-01-29] MEDS: oxyCODONE 5 MG Tablet PO (11:59)
== END 2023-01-29 12:50 | disposition home or self-care (01) | DRG 786 ==
PROVIDERS: Obstetrics & Gynecology; Admitting Provider Obstetrics & Gynecology; Visit Provider Obstetrics & Gynecology
PROC: 10D00Z1 Extraction of Products of Conception, Low, Open Approach (ICD-10-PCS; CPT 59514; principal; 2023-01-26 07:15)
DX: O34.211 Maternal care for low transverse scar from previous cesarean delivery (principal); O24.12 Pre-existing type 2 diabetes mellitus, in childbirth; E11.9 Type 2 diabetes mellitus without complications; Z79.4 Long term (current) use of insulin; K21.9 Gastro-esophageal reflux disease without esophagitis; O99.62 Diseases of the digestive system complicating childbirth; Z3A.38 38 weeks gestation of pregnancy; Z37.0 Single live birth; Z79.899 Other long term (current) drug therapy
CPT/HCPCS: 36415; 59025; 59050; 80053; 82962; 85025; 85027; 86780; 86850; 86900; 86901; 99221; J7120; A4216; G0378

== ENCOUNTER → 2023-03-16 | Outpatient (CLI) | payer OTHER, SELFPAY ==
[2023-03-21 20:27] LABS: HPV Reflexed? NOT INDICATED
== END | disposition home or self-care (01) ==
PROVIDERS: Visit Provider Registered Nurse
DX: R87.610 Atypical squamous cells of undetermined significance on cytologic smear of cervix (ASC-US) (principal)
CPT/HCPCS: 88175; G0145